=== PATIENT | female | born 1965 | race American Indian/Alaskan Native ===

== ENCOUNTER 2019-01-21 21:29 | Emergency (ER) | payer MEDICAID, OTHER ==
[2019-01-21 22:08] VITALS: BP 115/83
--- NOTE | 2019-01-21 23:37 | Emergency Department Report ---
ED Female HPI - General Chief complaint: Urogenital-Female Stated complaint: URINARY ISSUES Time Seen by Provider: 01/21/19 23:36 Source: patient Mode of arrival: Ambulatory Limitations: No Limitations - History of Present Illness Initial comments: 54-year-old -Citizen Of [place] female presents to the emergency room for urinary frequency 2 weeks. Patient denies any dysuria but does admit to urinary dribbling. Denies abdominal pain fever no nausea no vomiting. Onset/Timin -: week(s) Improves with: none Are you Now?: No - Related Data Previous Rx's Medication Instructions Recorded Last Taken Type Omeprazole 40 mg PO DAILY #30 capsule. 12/10/18 Unknown Rx Allergies Allergy/AdvReac Type Severity Reaction Status Date / Time No Known Allergies Allergy Unverified 12/10/18 10:51 ED Review of Systems ROS: Stated complaint: URINARY ISSUES Other details as noted in HPI Comment: All other systems reviewed and negative Genitourinary: frequency, other (urinary incontinence) ED Past Medical Hx - Past Medical History Previous Medical History?: No - Surgical History Past Surgical History?: Yes Additional Surgical History: TUBAL LIG - Social History Smoking Status: Never Smoker Substance Use Type: None - Medications Home Medications: Home Medications Medication Instructions Recorded Confirmed Last Taken Type Omeprazole 40 mg PO DAILY #30 capsule. 12/10/18 Unknown Rx ED Physical Exam - General Limitations: No Limitations General appearance: alert, in no apparent distress - Head Head exam: Present: atraumatic, normocephalic - Eye Eye exam: Present: normal appearance - Neurological Exam Neurological exam: Present: alert, oriented X3 - Psychiatric Psychiatric exam: Present: normal affect, normal mood - Skin Skin exam: Present: warm, dry, intact, normal color. Absent: rash ED Course Vital Signs 01/21/19 22:07 Temperature 97.7 F Pulse Rate 71 Respiratory 16 Rate Blood Pressure 115/83 [Right] O2 Sat by Pulse 100 Oximetry ED Medical Decision Making - Medical Decision Making Patient refused to sign paperwork and to be treated. Critical care attestation.: If time is entered above; I have spent that time in minutes in the direct care of this critically ill patient, excluding procedure time. ED Disposition Clinical Impression: Urinary frequency Disposition: ELOPED Is pt being admited?: No Does the pt Need Aspirin: No Condition: Undetermined [facility] [Primary Care Provider] - 3-5 Days
[2019-01-22 00:25] LABS: Bacteria,Urine 4+ /HPF (Negative); Bilirubin,Urine NEG (Negative); Blood,Urine NEG (Negative); Color,Urine Amber (Yellow); Mucus,Urine 3+ /HPF; Protein,Urine <15 mg/dL mg/dL (Negative)
== END 2019-01-21 23:40 | disposition left against medical advice (07) ==
LOC: ED 21:29
DX: R35.0 Frequency of micturition (principal); Z98.51 Tubal ligation status
CPT/HCPCS: 81001; 99283

== ENCOUNTER 2019-01-24 00:44 | Emergency (ER) | payer MEDICAID ==
--- NOTE | 2019-01-24 03:45 | Emergency Department Report ---
ED General Adult HPI - General Chief complaint: Urogenital-Female Stated complaint: FOOT/VAGINAL PAIN Time Seen by Provider: 01/24/19 03:33 Source: patient Mode of arrival: Ambulatory Limitations: No Limitations - History of Present Illness Initial comments: 54-year-old -[place] female presents to the emergency room for urinary frequency 2 weeks. Patient denies any dysuria but does admit to urinary dribbling. Denies abdominal pain fever no nausea no vomiting.Blister on plantar aspect toe. Onset/Timin -: week(s) Treatments Prior to Arrival: none - Related Data Previous Rx's Medication Instructions Recorded Last Taken Type Omeprazole 40 mg PO DAILY #30 capsule. 12/10/18 Unknown Rx cephALEXin [Keflex] 500 mg PO Q8HR #30 cap 01/24/19 Unknown Rx Allergies Allergy/AdvReac Type Severity Reaction Status Date / Time No Known Allergies Allergy Unverified 12/10/18 10:51 ED Review of Systems ROS: Stated complaint: FOOT/VAGINAL PAIN Other details as noted in HPI Comment: All other systems reviewed and negative Genitourinary: frequency Skin: lesions ED Past Medical Hx - Past Medical History Previous Medical History?: No - Surgical History Past Surgical History?: Yes Additional Surgical History: TUBAL LIG - Social History Smoking Status: Never Smoker Substance Use Type: None - Medications Home Medications: Home Medications Medication Instructions Recorded Confirmed Last Taken Type Omeprazole 40 mg PO DAILY #30 capsule. 12/10/18 Unknown Rx cephALEXin [Keflex] 500 mg PO Q8HR #30 cap 01/24/19 Unknown Rx ED Physical Exam - General Limitations: No Limitations General appearance: alert, in no apparent distress - Head Head exam: Present: atraumatic, normocephalic - Eye Eye exam: Present: normal appearance - ENT ENT exam: Present: mucous membranes moist - Neck Neck exam: Present: normal inspection - Respiratory Respiratory exam: Present: normal lung sounds bilaterally. Absent: respiratory distress - Cardiovascular Cardiovascular Exam: Present: regular rate, normal rhythm. Absent: systolic murmur, diastolic murmur, rubs, gallop - GI/Abdominal GI/Abdominal exam: Present: soft, normal bowel sounds - Back Exam Back exam: Present: normal inspection - Neurological Exam Neurological exam: Present: alert, oriented X3 - Psychiatric Psychiatric exam: Present: normal affect, normal mood - Expanded Skin Exam Expanded Type of lesion: Present: other (blister) Distribution of rash: LLE (4th toe) Description of rash: Present: blisters ED Course Vital Signs 01/24/19 00:51 Temperature 97.4 F L Pulse Rate 47 L Respiratory 18 Rate Blood Pressure 145/74 O2 Sat by Pulse 100 Oximetry ED Medical Decision Making - Medical Decision Making 54-year-old -[place] female comes in for urinary frequency and blister on her toe. Patient was attempted to be seen yesterday but refused to sign consent forms for me to treat. Urinalysis yesterday showed the patient had a urinary tract infection. Place patient on Keflex since she has no insurance or money. She will take 500 mg twice a day for the next 14 days. Patient is to follow-up with a primary care provider in the community. Critical care attestation.: If time is entered above; I have spent that time in minutes in the direct care of this critically ill patient, excluding procedure time. ED Disposition Clinical Impression: UTI (urinary tract infection), Blister of toe Disposition: TO HOME OR SELFCARE Is pt being admited?: No Does the pt Need Aspirin: No Condition: Stable Instructions: Urinary Tract Infection in Women (ED) Additional Instructions: Complete antibiotics as prescribed. Increase her water intake. Please refraim from walking too much. Get over the counter callus pads or mole skin. Follow up with a provider. Prescriptions: cephALEXin [Keflex] 500 mg PO Q8HR #30 cap Referrals: GHAZALA MONTES MD [Primary Care Provider] - 3-5 Days
[2019-01-24 04:50] VITALS: BP 140/38
== END 2019-01-24 04:49 | disposition home or self-care (01) ==
LOC: ED 00:44
DX: S90.425A Blister (nonthermal), left lesser toe(s), initial encounter (principal); N39.0 Urinary tract infection, site not specified; Z98.51 Tubal ligation status; X58.XXXA Exposure to other specified factors, initial encounter; Y93.89 Activity, other specified; Y92.89 Other specified places as the place of occurrence of the external cause; Y99.8 Other external cause status

== ENCOUNTER 2019-03-14 22:47 | Emergency (ER) | payer SELFPAY ==
[2019-03-15 04:09] LABS: Bacteria,Urine 3+ /HPF (Negative); Bilirubin,Urine NEG (Negative); Blood,Urine NEG (Negative); Color,Urine Yellow (Yellow); Mucus,Urine 3+ /HPF; Protein,Urine <15 mg/dL mg/dL (Negative)
[2019-03-15] MEDS ORDERED: LEVAQUIN PO ONE (04:28)
[2019-03-15] MEDS ORDERED: PYRIDIUM PO ONE (04:28)
--- NOTE | 2019-03-15 04:37 | Emergency Department Report ---
ED Female HPI - General Chief complaint: Urogenital-Male Stated complaint: ABD PAIN Time Seen by Provider: 03/15/19 01:00 Source: patient Mode of arrival: Ambulatory Limitations: No Limitations - History of Present Illness Initial comments: Patient is a 54-year-old, white female who presents to the ED with complaint of acute onset persistent dysuria, urinary frequency and urgency and intermittent urinary incontinence for the last 1 week, worse in the last 2 days. Patient denies fever, chills, nausea, vomiting, hematuria, vaginal bleeding, vaginal discharge, low back pain, abdominal pain, dizziness, chest pain, shortness of breath or diarrhea. MD Complaint: dysuria, other (urinary urgency nad frequency) -: Sudden, week(s) (1) Location: suprapubic Radiation: non-radiating Severity: severe Severity scale (0 -10): 6 Quality: dull (pressure) Consistency: intermittent Improves with: none Worsens with: urination Are you Now?: No Associated Symptoms: denies other symptoms, dysuria. denies: vaginal discharge, vaginal bleeding, abdominal pain, nausea/vomiting, fever/chills, headaches, loss of appetite, hematuria, rash, seizure, shortness of breath, syncope, weakness - Related Data Previous Rx's Medication Instructions Recorded Last Taken Type Omeprazole 40 mg PO DAILY #30 capsule.dr 12/10/18 Unknown Rx cephALEXin [Keflex] 500 mg PO Q8HR #30 cap 01/24/19 Unknown Rx Phenazopyridine [Pyridium] 200 mg PO Q8H #15 tab 03/15/19 Unknown Rx levoFLOXacin [Levaquin TAB] 500 mg PO QDAY #10 tablet 03/15/19 Unknown Rx Allergies Allergy/AdvReac Type Severity Reaction Status Date / Time No Known Allergies Allergy Unverified 12/10/18 10:51 ED Review of Systems ROS: Stated complaint: ABD PAIN Other details as noted in HPI Constitutional: denies: chills, fever Eyes: denies: eye pain, eye discharge, vision change ENT: denies: ear pain, throat pain Respiratory: denies: cough, shortness of breath, wheezing Cardiovascular: denies: chest pain, palpitations Endocrine: no symptoms reported Gastrointestinal: denies: abdominal pain, nausea, diarrhea Genitourinary: urgency, dysuria, frequency. denies: discharge Musculoskeletal: denies: back pain, joint swelling, arthralgia Skin: denies: rash, lesions Neurological: denies: headache, weakness, paresthesias Psychiatric: denies: anxiety, depression Hematological/Lymphatic: denies: easy bleeding, easy bruising ED Past Medical Hx - Past Medical History Previous Medical History?: Yes Hx Psychiatric Treatment: Yes (Bipolar) - Surgical History Past Surgical History?: Yes Additional Surgical History: TUBAL LIG - Social History Smoking Status: Never Smoker Substance Use Type: None - Medications Home Medications: Home Medications Medication Instructions Recorded Confirmed Last Taken Type Omeprazole 40 mg PO DAILY #30 capsule.dr 12/10/18 Unknown Rx cephALEXin [Keflex] 500 mg PO Q8HR #30 cap 01/24/19 Unknown Rx Phenazopyridine [Pyridium] 200 mg PO Q8H #15 tab 03/15/19 Unknown Rx levoFLOXacin [Levaquin TAB] 500 mg PO QDAY #10 tablet 03/15/19 Unknown Rx ED Physical Exam - General Limitations: No Limitations General appearance: alert, in no apparent distress - Head Head exam: Present: atraumatic, normocephalic, normal inspection - Eye Eye exam: Present: normal appearance, PERRL, EOMI Pupils: Present: normal accommodation - ENT ENT exam: Present: normal exam, normal orophraynx, mucous membranes moist, TM's normal bilaterally, normal external ear exam - Neck Neck exam: Present: normal inspection, full ROM - Respiratory Respiratory exam: Present: normal lung sounds bilaterally. Absent: respiratory distress, wheezes, rales, rhonchi, chest wall tenderness, decreased breath sounds, prolonged expiratory - Cardiovascular Cardiovascular Exam: Present: regular rate, normal rhythm, normal heart sounds. Absent: systolic murmur, diastolic murmur, rubs, gallop - GI/Abdominal GI/Abdominal exam: Present: soft, normal bowel sounds. Absent: distended, hyp eractive bowel sounds, hypoactive bowel sounds, organomegaly - Rectal Rectal exam: Present: deferred - Extremities Exam Extremities exam: Present: normal inspection, full ROM, normal capillary refill - Back Exam Back exam: Present: normal inspection, full ROM. Absent: tenderness, CVA tenderness (R), CVA tenderness (L), muscle spasm, paraspinal tenderness, vertebral tenderness - Neurological Exam Neurological exam: Present: alert, oriented X3, CN II-XII intact, normal gait, reflexes normal - Psychiatric Psychiatric exam: Present: normal affect, normal mood - Skin Skin exam: Present: warm, dry, intact, normal color. Absent: rash ED Course Vital Signs 03/14/19 23:04 Temperature 97.9 F Pulse Rate 70 Respiratory 18 Rate Blood Pressure 118/79 O2 Sat by Pulse 99 Oximetry - Reevaluation(s) Reevaluation #1: 03/15/19 04:36 This is a 54-year-old, female who presented to the ED with urinary urgency and frequency for the last 1 week. In the ED, patient is alert and oriented 3 and is not distressed. Urinalysis shows acute tract infection. Patient was treated initially in the ED with the Levaquin 500 mg by mouth 1 and discharged home on antibiotics. Patient is advised to follow-up with the [facility]OLOG[facility] physician on-call Dr. Do in 7-10 days for further evaluation. Patient was advised to return to the ED immediately if symptoms get worse. ED Medical Decision Making - Medical Decision Making This is a 54-year-old, female who presented to the ED with urinary urgency and frequency for the last 1 week. In the ED, patient is alert and oriented 3 and is not distressed. Urinalysis shows acute tract infection. Patient was treated initially in the ED with the Levaquin 500 mg by mouth 1 and discharged home on antibiotics. Patient is advised to follow-up with the GYNECOLOGY TEACHER physician on-call Dr. Do in 7-10 days for further evaluation. Patient was advised to return to the ED immediately if symptoms get worse. - Differential Diagnosis acute UTI; Urinary Incontinence Critical care attestation.: If time is entered above; I have spent that time in minutes in the direct care of this critically ill patient, excluding procedure time. ED Disposition Clinical Impression: Acute urinary tract infection Disposition: DC-01 TO HOME OR SELFCARE Is pt being admited?: No Does the pt Need Aspirin: No Condition: Stable Instructions: Urinary Tract Infection in Women (ED) Additional Instructions: Take medications with food, drink plenty of fluids and follow up with your primary care physician in 5-7 days for reevaluation. Return to the ED immediately if symptoms get worse. Consider following up with the GYNECOLOGY TEACHER physician Dr. Coello in 7-10 days. Prescriptions: levoFLOXacin [Levaquin TAB] 500 mg PO QDAY #10 tablet Phenazopyridine [Pyridium] 200 mg PO Q8H #15 tab Referrals: AXEL COELLO MD [Staff Physician] - 3-5 Days Time of Disposition: 04:39 Print Language: [place] CITIZEN
[2019-03-15 04:59] VITALS: BP 127/67
== END 2019-03-15 04:59 | disposition home or self-care (01) ==
LOC: ED 22:47
DX: N39.0 Urinary tract infection, site not specified (principal); F31.9 Bipolar disorder, unspecified; Z98.51 Tubal ligation status
CPT/HCPCS: 81001; 99283

== ENCOUNTER 2019-03-19 05:06 | Emergency (ER) | payer SELFPAY | END 2019-03-19 08:12 | disposition left against medical advice (07) | LOC: ED 05:06 | DX: N89.8 Other specified noninflammatory disorders of vagina (principal); Z53.21 Procedure and treatment not carried out due to patient leaving prior to being seen by health care provider ==

== ENCOUNTER 2019-04-04 03:04 | Emergency (ER) | payer SELFPAY ==
[2019-04-04 03:52] VITALS: BP 130/84
[2019-04-04 05:41] LABS: Bilirubin,Urine NEG (Negative); Blood,Urine NEG (Negative); Color,Urine Amber (Yellow); Mucus,Urine 3+ /HPF; Protein,Urine <15 mg/dL mg/dL (Negative)
--- NOTE | 2019-04-04 08:40 | Emergency Department Report ---
ED Psych HPI - General Chief Complaint: Urogenital-Female Stated Complaint: VAGINAL DISCHARGE Time Seen by Provider: 04/04/19 08:25 Source: patient Mode of arrival: Ambulatory - History of Present Illness Initial Comments: Patient is 54 years old female, unknown past medical history. Patient presented to the ER stating that she needed help for urinary incontinence that has been going on for more than 2 years. Patient stated that she came from [place] to [place] for a visit. Patient with obvious flights of ideas. Patient is disorganized and spacing in the room and talking to someone in the room ceiling. When asked about psychiatric history patient immediately turned a way and stopped talking. When asked about suicidal and homicidal ideation patient also refused to answer questions. MD Complaint: altered mental status - Related Data Previous Rx's Medication Instructions Recorded Last Taken Type Omeprazole 40 mg PO DAILY #30 capsule. 12/10/18 Unknown Rx cephALEXin [Keflex] 500 mg PO Q8HR #30 cap 01/24/19 Unknown Rx Phenazopyridine [Pyridium] 200 mg PO Q8H #15 tab 03/15/19 Unknown Rx levoFLOXacin [Levaquin TAB] 500 mg PO QDAY #10 tablet 03/15/19 Unknown Rx Allergies Allergy/AdvReac Type Severity Reaction Status Date / Time No Known Allergies Allergy Unverified 12/10/18 10:51 ED Review of Systems ROS: Stated complaint: VAGINAL DISCHARGE Other details as noted in HPI Comment: All other systems reviewed and negative Constitutional: denies: chills, fever Respiratory: denies: cough, shortness of breath, SOB with exertion, SOB at rest, wheezing Cardiovascular: denies: chest pain, palpitations Gastrointestinal: denies: abdominal pain, nausea Genitourinary: other (incontinence) ED Past Medical Hx - Past Medical History Previous Medical History?: Yes Hx Psychiatric Treatment: Yes (Bipolar) - Surgical History Past Surgical History?: Yes Additional Surgical History: TUBAL LIG - Social History Smoking Status: Never Smoker Substance Use Type: None - Medications Home Medications: Home Medications Medication Instructions Recorded Confirmed Last Taken Type Omeprazole 40 mg PO DAILY #30 capsule. 12/10/18 Unknown Rx cephALEXin [Keflex] 500 mg PO Q8HR #30 cap 01/24/19 Unknown Rx Phenazopyridine [Pyridium] 200 mg PO Q8H #15 tab 03/15/19 Unknown Rx levoFLOXacin [Levaquin TAB] 500 mg PO QDAY #10 tablet 03/15/19 Unknown Rx ED Physical Exam - General Limitations: No Limitations General appearance: alert, in no apparent distress, anxious - Head Head exam: Present: atraumatic, normocephalic, normal inspection - Eye Eye exam: Present: normal appearance, PERRL - ENT ENT exam: Present: normal exam, normal orophraynx, mucous membranes moist - Neck Neck exam: Present: normal inspection, full ROM. Absent: tenderness, meningismus, lymphadenopathy, thyromegaly - Respiratory Respiratory exam: Present: normal lung sounds bilaterally - Cardiovascular Cardiovascular Exam: Present: regular rate, normal rhythm, normal heart sounds - GI/Abdominal GI/Abdominal exam: Present: soft, normal bowel sounds. Absent: distended, tenderness, guarding, rebound, rigid, organomegaly, mass, bruit, pulsatile mass, hernia - Extremities Exam Extremities exam: Present: normal inspection, full ROM, normal capillary refill. Absent: pedal edema, calf tenderness - Back Exam Back exam: Present: normal inspection, full ROM. Absent: CVA tenderness (R), CVA tenderness (L), muscle spasm, paraspinal tenderness, vertebral tenderness - Neurological Exam Neurological exam: Present: alert, oriented X3, CN II-XII intact, normal gait, reflexes normal - Psychiatric Psychiatric exam: Present: anxious ED Course Vital Signs 04/04/19 03:47 Temperature 98.6 F Pulse Rate 58 L Respiratory 16 Rate Blood Pressure 130/84 O2 Sat by Pulse 100 Oximetry ED Medical Decision Making - Medical Decision Making Patient is 54 years old female, unknown past medical history. Patient presented to the ER stating that she needed help for urinary incontinence that has been going on for more than 2 years. Patient stated that she came from [place] to [place] for a visit. Patient with obvious flights of ideas. Patient is disorganized and spacing in the room and talking to someone in the room ceiling. When asked about psychiatric history patient immediately turned a way and stopped talking. When asked about suicidal and homicidal ideation patient denied. Unsure if this is the patient baseline psychiatric symptoms. Mental health evaluation requested. At this point patient does not require involuntary evaluation. Critical care attestation.: If time is entered above; I have spent that time in minutes in the direct care of this critically ill patient, excluding procedure time. ED Disposition Clinical Impression: Urinary incontinence, Psychosis Disposition: ELOPED Is pt being admited?: No Condition: Stable Referrals: [facility], [Primary Care Provider] - 3-5 Days
== END 2019-04-04 09:30 | disposition left against medical advice (07) ==
LOC: ED 03:04
DX: F23 Brief psychotic disorder (principal); R32 Unspecified urinary incontinence; F31.9 Bipolar disorder, unspecified; Z98.51 Tubal ligation status; Z79.899 Other long term (current) drug therapy
CPT/HCPCS: 81001

== ENCOUNTER 2019-04-15 22:13 | Emergency (ER) | payer OTHER ==
[2019-04-15 22:56] VITALS: BP 135/74
--- NOTE | 2019-04-16 02:51 | Emergency Department Report ---
Chief Complaint: Urogenital-Female Stated Complaint: VAGINAL IRRITATION/INSECT BITE Time Seen by Provider: 04/16/19 02:45 - HPI History of Present Illness: 54-year-old -[place] female with a known history of psychosis comes in today for vaginal irritation and insect bite to the left pinky for 2 weeks. Patient denies any fever chills or nausea no vomiting no fevers. Patient is hearing voices and talking to pressures are not in the room. - Exam Vital Signs: Vital Signs 04/15/19 22:53 Temperature 97.9 F Pulse Rate 60 Respiratory 16 Rate Blood Pressure 135/74 O2 Sat by Pulse 100 Oximetry Physical Exam: Left pinky no swelling no redness or irritation. Genitourinary examination: External no redness does swelling no lesions no discharge Patient refused to do it internal vaginal exam. MSE screening note: Focused history and physical exam performed. Due to findings the following was ordered: Patient refused exam. Patient to follow-up with the primary care provider or [facility] provider. Vital signs are stable. ED Disposition for MSE Clinical Impression: Vaginal irritation Disposition: DC- TO HOME OR SELFCARE Is pt being admited?: No Does the pt Need Aspirin: No Condition: Stable Additional Instructions: Follow-up with the [facility] provider Referrals: [facility]ARE [Primary Care Provider] - 3-5 Days [facility] [Provider Group] - 3-5 Days
== END 2019-04-16 03:07 | disposition home or self-care (01) ==
LOC: ED 22:13
DX: N89.8 Other specified noninflammatory disorders of vagina (principal)

== ENCOUNTER 2020-04-07 22:07 | Emergency (ER) | payer SELFPAY ==
[2020-04-07 22:19] VITALS: BP 103/55
[2020-04-08 03:57] LABS: Hematocrit 38.1 % (30.3-42.9); Hemoglobin 13.5 gm/dl (10.1-14.3); Mean Corpuscular HGB Conc 35 % (30-34); Mean Corpuscular Volume 86 fl (79-97); Platelet Count 204 K/mm3 (140-440); Red Blood Count 4.45 M/mm3 (3.65-5.03); Red Cell Distribution Width 13.9 % (13.2-15.2)
[2020-04-08 04:18] LABS: Alanine Aminotransferase 19 units/L (7-56); Albumin 4.3 g/dL (3.9-5); Blood Urea Nitrogen 15 mg/dL (7-17); Calcium 9.1 mg/dL (8.4-10.2); Hemolysis Index 34
[2020-04-08 04:21] LABS: BUN/Creatinine Ratio 21
--- NOTE | 2020-04-08 04:38 | Emergency Department Report ---
ED General Adult HPI - General Chief complaint: Skin Rash Stated complaint: ALLERGIC REACTION Source: patient Mode of arrival: Ambulatory Limitations: No Limitations - History of Present Illness Initial comments: Patient is a 55-year-old -[place] female with a history of bipolar disorder who presents to the ED with acute exacerbation of her chronic diffuse itchy skin for the last 1 month. Patient states that she has had itching of skin with no known cause for over 1 year and that the itching resolves when she takes Benadryl. Patient states that she has not taken Benadryl in about 1 month and that in the last 2 days the itching got worse. Patient denies eating any new foods, any new lotions or shortness of breath, swollen lips or tongue, dysphagia, dysphonia, fever, chills, cough, nausea and vomiting or diarrhea or abdominal pain. MD Complaint: Itching -: Gradual, month(s) (12) Location: chest, back, abdomen Radiation: non-radiation Severity scale (0 -10): 3 Quality: burning, aching Consistency: constant Improves with: medication (benadryl) Worsens with: none Associated Symptoms: denies other symptoms. denies: confusion, chest pain, cough, diaphoresis, fever/chills, headaches, loss of appetite, malaise, nausea/vomiting, rash, seizure, shortness of breath, syncope, weakness Treatments Prior to Arrival: none - Related Data Previous Rx's Medication Instructions Recorded Last Taken Type Omeprazole 40 mg PO DAILY #30 capsule. 12/10/18 Unknown Rx cephALEXin [Keflex] 500 mg PO Q8HR #30 cap 01/24/19 Unknown Rx Phenazopyridine [Pyridium] 200 mg PO Q8H #15 tab 03/15/19 Unknown Rx levoFLOXacin [Levaquin TAB] 500 mg PO QDAY #10 tablet 03/15/19 Unknown Rx Hydrocortisone 0.5% (Nf) 1 applicatio TP TID #1 tube 04/08/20 Unknown Rx [Hydrocortisone 0.5% OINT] hydrOXYzine PAMOATE [Vistaril] 25 mg PO Q6HR PRN #60 capsule 04/08/20 Unknown Rx methylPREDNISolone [Medrol 4MG 4 mg PO DAILY #21 tab.ds.pk 04/08/20 Unknown Rx DOSEPAK (21 tabs)] Allergies Allergy/AdvReac Type Severity Reaction Status Date / Time No Known Allergies Allergy Unverified 12/10/18 10:51 ED Review of Systems ROS: Stated complaint: ALLERGIC REACTION Other details as noted in HPI Constitutional: denies: chills, fever Eyes: denies: eye pain, eye discharge, vision change ENT: denies: ear pain, throat pain Respiratory: denies: cough, shortness of breath, wheezing Cardiovascular: denies: chest pain, palpitations Endocrine: no symptoms reported Gastrointestinal: denies: abdominal pain, nausea, diarrhea Genitourinary: denies: urgency, dysuria, discharge Musculoskeletal: denies: back pain, joint swelling, arthralgia Skin: pruritus (Diffuse itchy skin). denies: rash, lesions Neurological: denies: headache, weakness, paresthesias Psychiatric: anxiety. denies: depression Hematological/Lymphatic: denies: easy bleeding, easy bruising ED Past Medical Hx - Past Medical History Previous Medical History?: Yes Hx Psychiatric Treatment: Yes (Bipolar) - Surgical History Past Surgical History?: Yes Additional Surgical History: TUBAL LIG - Social History Smoking Status: Never Smoker Substance Use Type: None - Medications Home Medications: Home Medications Medication Instructions Recorded Confirmed Last Taken Type Omeprazole 40 mg PO DAILY #30 capsule.dr 12/10/18 Unknown Rx cephALEXin [Keflex] 500 mg PO Q8HR #30 cap 01/24/19 Unknown Rx Phenazopyridine [Pyridium] 200 mg PO Q8H #15 tab 03/15/19 Unknown Rx levoFLOXacin [Levaquin TAB] 500 mg PO QDAY #10 tablet 03/15/19 Unknown Rx Hydrocortisone 0.5% (Nf) 1 applicatio TP TID #1 tube 04/08/20 Unknown Rx [Hydrocortisone 0.5% OINT] hydrOXYzine PAMOATE [Vistaril] 25 mg PO Q6HR PRN #60 capsule 04/08/20 Unknown Rx methylPREDNISolone [Medrol 4MG 4 mg PO DAILY #21 tab.ds.pk 04/08/20 Unknown Rx DOSEPAK (21 tabs)] ED Physical Exam - General Limitations: No Limitations General appearance: alert, in no apparent distress - Head Head exam: Present: atraumatic, normocephalic, normal inspection - Eye Eye exam: Present: normal appearance, PERRL, EOMI Pupils: Present: normal accommodation - ENT ENT exam: Present: normal exam, normal orophraynx, mucous membranes moist, TM's normal bilaterally, normal external ear exam - Neck Neck exam: Present: normal inspection, full ROM - Respiratory Respiratory exam: Present: normal lung sounds bilaterally. Absent: respiratory distress, wheezes, rales, stridor, chest wall tenderness, decreased breath sounds, prolonged expiratory - Cardiovascular Cardiovascular Exam: Present: regular rate, normal rhythm, normal heart sounds. Absent: systolic murmur, diastolic murmur, rubs, gallop - GI/Abdominal GI/Abdominal exam: Present: soft, normal bowel sounds. Absent: tenderness, guarding, rebound, hyperactive bowel sounds, hypoactive bowel sounds - Extremities Exam Extremities exam: Present: normal inspection, full ROM, normal capillary refill - Back Exam Back exam: Present: normal inspection, full ROM. Absent: tenderness, CVA tenderness (R), CVA tenderness (L), muscle spasm, paraspinal tenderness - Neurological Exam Neurological exam: Present: alert, oriented X3, CN II-XII intact, normal gait, reflexes normal - Psychiatric Psychiatric exam: Present: normal affect, normal mood, anxious - Skin Skin exam: Present: warm, dry, intact, normal color. Absent: rash ED Course Vital Signs 04/07/20 22:18 Temperature 98.3 F Pulse Rate 78 Respiratory 18 Rate Blood Pressure 103/55 O2 Sat by Pulse 99 Oximetry ED Medical Decision Making - Lab Data Result diagrams: 04/08/20 03:34 04/08/20 03:34 - Medical Decision Making This is a 55-year-old -[place] female with a history of bipolar disorder who presents to the ED with acute exacerbation of her chronic diffuse itchy skin for the last 1 month. Patient states that she has had itching of skin with no known cause for over 1 year and that the itching resolves when she takes Benadryl. Patient states that she has not taken Benadryl in about 1 month and that in the last 2 days the itching got worse. In the ED, patient is alert and oriented x3 and is not in distress, anxious and is hemodynamically stable. Lab test results were reviewed and are all nonactionable. Patient was treated for itching and discharged home on medications. Patient was advised to return to the ED immediately if symptoms get worse. Otherwise patient was advised to follow-up with her primary care physician in 7 to 10 days for reevaluation. - Differential Diagnosis Irritant dermatitis; Itching with irritation; allergic reaction Critical care attestation.: If time is entered above; I have spent that time in minutes in the direct care of this critically ill patient, excluding procedure time. ED Disposition Clinical Impression: Itching with irritation, Irritant dermatitis Disposition: TO HOME OR SELFCARE Is pt being admited?: No Does the pt Need Aspirin: No Condition: Stable Instructions: Itchy Skin (ED) Additional Instructions: Take medication with food, drink plenty of fluids and follow-up with your primary care physician in 5 to 7 days for reevaluation. Return to the ED imme diately if symptoms get worse. Prescriptions: Hydrocortisone 0.5% (Nf) [Hydrocortisone 0.5% OINT] 1 applicatio TP TID #1 tube methylPREDNISolone [Medrol 4MG DOSEPAK (21 tabs)] 4 mg PO DAILY #21 tab.ds.pk hydrOXYzine PAMOATE [Vistaril] 25 mg PO Q6HR PRN #60 capsule PRN Reason: Itching Referrals: [facility] [Provider Group] - 3-5 Days Time of Disposition: 04:35 Print Language: KOREAN
[2020-04-08 04:54] LABS: Total Cells Counted 100
[2020-04-08 04:55] LABS: Ovalocytes Few; Platelet Estimate Consistent w Auto; Schistocytes Few
== END 2020-04-08 05:50 | disposition home or self-care (01) ==
LOC: ED 22:07
DX: L30.8 Other specified dermatitis (principal); L29.9 Pruritus, unspecified; F31.9 Bipolar disorder, unspecified; Z98.51 Tubal ligation status; Z79.899 Other long term (current) drug therapy; Z79.2 Long term (current) use of antibiotics
CPT/HCPCS: 36415; 80053; 85007; 85025

== ENCOUNTER 2020-04-12 02:00 | Emergency (ER) | payer SELFPAY ==
[2020-04-12 02:43] VITALS: BP 130/79
--- NOTE | 2020-04-12 05:03 | Emergency Department Report ---
ED General Adult HPI - General Chief complaint: Skin Rash Stated complaint: ITCHY/INSECT BITE Source: patient Mode of arrival: Ambulatory Limitations: No Limitations - History of Present Illness Initial comments: Patient is a 55-year-old -Iranian female with a history of schizophrenia, bipolar disorder and anxiety who presents to the ED with complaint of acute onset persistent bilateral lower extremity itching with rashes after [place]. Patient also states that the symptoms have been persistent alonso ecially in the last 2 days. Patient states that she has not taken any antihistamines or any other medications for itching. Patient denies fever, chills, nausea, vomiting, diarrhea, dysuria, urinary frequency and urgency, traumatic injury, chest pain and shortness of breath, hallucination or suicidal and homicidal ideation. MD Complaint: Lower legs itching after insect bite -: week(s) (2 weeks) Location: lower extremity (Bilaterally) Radiation: non-radiation Severity scale (0 -10): 2 Quality: burning, constant, other (Itching) Consistency: constant Improves with: none Worsens with: none Associated Symptoms: denies other symptoms, rash (Mildly erythematous maculopapular rashes on the lower extremities bilaterally). denies: confusion, chest pain, cough, diaphoresis, fever/chills, headaches, loss of appetite, malaise, seizure, shortness of breath, syncope, weakness Treatments Prior to Arrival: none - Related Data Previous Rx's Medication Instructions Recorded Last Taken Type Omeprazole 40 mg PO DAILY #30 capsule. 12/10/18 Unknown Rx cephALEXin [Keflex] 500 mg PO Q8HR #30 cap 01/24/19 Unknown Rx Phenazopyridine [Pyridium] 200 mg PO Q8H #15 tab 03/15/19 Unknown Rx levoFLOXacin [Levaquin TAB] 500 mg PO QDAY #10 tablet 03/15/19 Unknown Rx Hydrocortisone 0.5% (Nf) 1 applicatio TP TID #1 tube 04/08/20 Unknown Rx [Hydrocortisone 0.5% OINT] hydrOXYzine PAMOATE [Vistaril] 25 mg PO Q6HR PRN #60 capsule 04/08/20 Unknown Rx methylPREDNISolone [Medrol 4MG 4 mg PO DAILY #21 tab.ds.pk 04/08/20 Unknown Rx DOSEPAK (21 tabs)] Allergies Allergy/AdvReac Type Severity Reaction Status Date / Time No Known Allergies Allergy Unverified 04/12/20 02:15 ED Review of Systems ROS: Stated complaint: ITCHY/INSECT BITE Other details as noted in HPI Constitutional: denies: chills, fever Eyes: denies: eye pain, eye discharge, vision change ENT: denies: ear pain, throat pain Respiratory: denies: cough, shortness of breath, wheezing Cardiovascular: denies: chest pain, palpitations Endocrine: no symptoms reported Gastrointestinal: denies: abdominal pain, nausea, diarrhea Genitourinary: denies: urgency, dysuria, discharge Musculoskeletal: denies: back pain, joint swelling, arthralgia Skin: rash (Diffuse itchy bilateral lower extremity maculopapular rashes with mild redness), change in color, pruritus. denies: lesions Neurological: denies: headache, weakness, paresthesias Psychiatric: anxiety. denies: depression Hematological/Lymphatic: denies: easy bleeding, easy bruising ED Past Medical Hx - Past Medical History Hx Psychiatric Treatment: Yes (Bipolar; schizophrenia; anxiety) - Surgical History Additional Surgical History: TUBAL LIG - Social History Smoking Status: Never Smoker Substance Use Type: None - Medications Home Medications: Home Medications Medication Instructions Recorded Confirmed Last Taken Type Omeprazole 40 mg PO DAILY #30 capsule.dr 12/10/18 Unknown Rx cephALEXin [Keflex] 500 mg PO Q8HR #30 cap 01/24/19 Unknown Rx Phenazopyridine [Pyridium] 200 mg PO Q8H #15 tab 03/15/19 Unknown Rx levoFLOXacin [Levaquin TAB] 500 mg PO QDAY #10 tablet 03/15/19 Unknown Rx Hydrocortisone 0.5% (Nf) 1 applicatio TP TID #1 tube 04/08/20 Unknown Rx [Hydrocortisone 0.5% OINT] hydrOXYzine PAMOATE [Vistaril] 25 mg PO Q6HR PRN #60 capsule 04/08/20 Unknown Rx methylPREDNISolone [Medrol 4MG 4 mg PO DAILY #21 tab.ds.pk 04/08/20 Unknown Rx DOSEPAK (21 tabs)] ED Physical Exam - General Limitations: No Limitations General appearance: alert, in no apparent distress - Head Head exam: Present: atraumatic, normocephalic, normal inspection - Eye Eye exam: Present: normal appearance, PERRL, EOMI Pupils: Present: normal accommodation - ENT ENT exam: Present: normal exam, normal orophraynx, mucous membranes moist, TM's normal bilaterally, normal external ear exam - Neck Neck exam: Present: normal inspection, full ROM - Respiratory Respiratory exam: Present: normal lung sounds bilaterally. Absent: respiratory distress, wheezes, rales, stridor, chest wall tenderness, accessory muscle use, decreased breath sounds, prolonged expiratory - Cardiovascular Cardiovascular Exam: Present: regular rate, normal rhythm, normal heart sounds. Absent: systolic murmur, diastolic murmur, rubs, gallop - GI/Abdominal GI/Abdominal exam: Present: soft, normal bowel sounds. Absent: tenderness, guarding, rebound, hyperactive bowel sounds, hypoactive bowel sounds, organomegaly - Extremities Exam Extremities exam: Present: normal inspection, full ROM, normal capillary refill - Back Exam Back exam: Present: normal inspection, full ROM. Absent: tenderness, CVA tenderness (R), muscle spasm, paraspinal tenderness, vertebral tenderness - Neurological Exam Neurological exam: Present: alert, oriented X3, CN II-XII intact, normal gait, reflexes normal - Psychiatric Psychiatric exam: Present: depressed, anxious, flat affect. Absent: manic, homicidal ideation, suicidal ideation - Skin Skin exam: Present: warm, dry, intact, normal color, rash (Diffuse mildly erythematous maculopapular rashes on the lower extremities bilaterally), erythema ED Course Vital Signs 04/12/20 02:13 Temperature 98.5 F Pulse Rate 81 Respiratory 18 Rate Blood Pressure 130/79 O2 Sat by Pulse 96 Oximetry ED Medical Decision Making - Medical Decision Making This is a 55-year-old -Iranian female with a history of schizophrenia, bipolar disorder and anxiety who presents to the ED with complaint of acute onset persistent bilateral lower extremity itching with rashes after [place]. Patient also states that the symptoms have been persistent especially in the last 2 days. Patient states that she has not taken any antihistamines or any other medications for itching. In the ED, patient is alert and oriented x3 and is not in distress, patient talking to herself while writing on various pieces of paper and has her belongings in a suitcase by her. Patient was treated for the same about 4 days ago and was given a prescription but never filled the medication. Patient was treated with antihistamines in the ED and was discharged home and advised to fill the prescription that was previously written for her, Vistaril and to follow-up with her primary care physician in 5 to 7 days for reevaluation. Patient was advised to return to the ED immediately if symptoms get worse. - Differential Diagnosis Insect bite; urticaria; allergic reaction; itching Critical care attestation.: If time is entered above; I have spent that time in minutes in the direct care of this critically ill patient, excluding procedure time. ED Disposition Clinical Impression: Itching with irritation, Allergy to insect bites and stings Disposition: DC- TO HOME OR SELFCARE Is pt being admited?: No Does the pt Need Aspirin: No Condition: Stable Instructions: Itchy Skin (ED), Insect Bite or Sting (ED) Additional Instructions: Take the previously prescribed anti-itch medication, follow-up with your primary care physician in 5 to 7 days for reevaluation. Return to the ED immediately if symptoms get worse. Referrals: [facility] [Outside] - 3-5 Days Time of Disposition: 05:04 Print Language: NORTHER[place] IRISH
[2020-04-12] MEDS ORDERED: FAMOTIDINE 20 MG TAB PO ONE (05:06)
[2020-04-12] MEDS ORDERED: diphenhydrAMINE 25 MG CAP PO ONE (05:06)
== END 2020-04-12 05:20 | disposition home or self-care (01) ==
LOC: ED 02:00
DX: T63.441A Toxic effect of venom of bees, accidental (unintentional), initial encounter (principal); Y92.89 Other specified places as the place of occurrence of the external cause; F20.9 Schizophrenia, unspecified; F31.9 Bipolar disorder, unspecified; F41.9 Anxiety disorder, unspecified; Z79.899 Other long term (current) drug therapy
CPT/HCPCS: 99282

== ENCOUNTER 2020-09-19 19:40 | Emergency (ER) | payer MEDICAID ==
[2020-09-19 20:42] VITALS: BP 115/71
--- NOTE | 2020-09-19 20:49 | Emergency Department Report ---
Chief Complaint: Abdominal Pain Stated Complaint: LACERATION TO LEFT TOE/ABDOMINAL PAIN Time Seen by Provider: 09/19/20 20:40 - HPI History of Present Illness: Patient is a 55-year-old female who presents emergency room with complaints of a cut to the bottom of her right toes that has been intermittent for 6 months. She denies any fall or injury. She denies being cut by anything. She states that her skin just cracks and opens. She denies any drainage, fever, leg swelling, pain. No past medical history. No allergies to medications. Initial vitals with mild tachycardia, otherwise normal On repeat heart rate is 60 bpm and oxygen saturation is 100% on room air On exam: There are small calluses present to the plantar surface of each of the toes, the fifth toe dorsal surface has a very superficial small opening only a couple millimeters in size, no significant opening, no surrounding erythema, no drainage, no increased warmth, neurovascularly intact Patient is presenting for calluses and breaks in the skin secondary to dry skin No signs of ulceration, no infection, she is neurovascularly intact Advised patient to use Neosporin on the small opening and to use lotion on her dry skin Advised to follow-up with a primary care doctor Discussed return precautions Medical screening examination performed and there is at that level at this time - Exam Vital Signs: Vital Signs 09/19/20 19:55 Temperature 97.6 F Pulse Rate 103 H Respiratory 18 Rate Blood Pressure 115/71 O2 Sat by Pulse 98 Oximetry MSE screening note: Focused history and physical exam performed. Due to findings the following was ordered: ED Disposition for MSE Clinical Impression: Callus, Cracked skin on feet Disposition: Z-07 MED SCREENING EXAM-LEFT Is pt being admited?: No Does the pt Need Aspirin: No Condition: Stable Instructions: Abdominal Pain (ED), Corns and Calluses Additional Instructions: Please use Neosporin to the small openings. Please use lotion on the feet to help with dry skin. Follow-up with your primary care doctor. Return to emergency room for new or worsening symptoms. Referrals: LIZA HOLLAND MD [Staff Physician] - 3-5 Days [facility] [Provider Group] - 3-5 Days [facility], [LAB/CONTRACT] - 3-5 Days [facility] [Outside] - 3-5 Days Time of Disposition: 20:51 Print Language: TURKISH
== END 2020-09-19 21:01 | disposition left against medical advice (07) ==
LOC: ED 19:40
DX: L84 Corns and callosities (principal); L98.8 Other specified disorders of the skin and subcutaneous tissue; Z53.21 Procedure and treatment not carried out due to patient leaving prior to being seen by health care provider

== ENCOUNTER 2020-09-20 17:30 | Emergency (ER) | payer SELFPAY ==
[2020-09-20 17:51] VITALS: BP 101/64
--- NOTE | 2020-09-20 19:26 | Emergency Department Report ---
ED General Adult HPI - General Chief complaint: Abdominal Pain Stated complaint: VAGINAL DISCOMFORT Time Seen by Provider: 09/20/20 18:09 Source: patient Mode of arrival: Ambulatory Limitations: No Limitations - History of Present Illness Initial comments: Patient is a 55-year-old female presents emergency room with complaints of umbilical and suprapubic abdominal discomfort for 8 months. She states that she has associated urinary frequency, dark urine, odor to the urine. She denies any dysuria, vaginal discharge, fever, nausea, vomiting, diarrhea, hematochezia, melena, hematemesis. She is able to tolerate p.o. intake. No allergies to medications. Past surgical history of tubal ligation. - Related Data Previous Rx's Medication Instructions Recorded Last Taken Type Omeprazole 40 mg PO DAILY #30 capsule. 12/10/18 Unknown Rx cephALEXin [Keflex] 500 mg PO Q8HR #30 cap 01/24/19 Unknown Rx Phenazopyridine [Pyridium] 200 mg PO Q8H #15 tab 03/15/19 Unknown Rx levoFLOXacin [Levaquin TAB] 500 mg PO QDAY #10 tablet 03/15/19 Unknown Rx Hydrocortisone 0.5% (Nf) 1 applicatio TP TID #1 tube 04/08/20 Unknown Rx [Hydrocortisone 0.5% OINT] hydrOXYzine PAMOATE [Vistaril] 25 mg PO Q6HR PRN #60 capsule 04/08/20 Unknown Rx methylPREDNISolone [Medrol 4MG 4 mg PO DAILY #21 tab.ds.pk 04/08/20 Unknown Rx DOSEPAK (21 tabs)] Naproxen [EC-Naprosyn] 500 mg PO BID PRN #14 tablet. 09/20/20 Unknown Rx Phenazopyridine [Pyridium] 100 mg PO TID #9 tab 09/20/20 Unknown Rx Allergies Allergy/AdvReac Type Severity Reaction Status Date / Time No Known Allergies Allergy Verified 09/19/20 20:00 ED Review of Systems ROS: Stated complaint: VAGINAL DISCOMFORT Other details as noted in HPI Comment: All other systems reviewed and negative ED Past Medical Hx - Past Medical History Previous Medical History?: Yes Hx Psychiatric Treatment: Yes (Bipolar; schizophrenia; anxiety) - Surgical History Past Surgical History?: Yes Additional Surgical History: TUBAL LIG - Social History Smoking Status: Never Smoker - Medications Home Medications: Home Medications Medication Instructions Recorded Confirmed Last Taken Type Omeprazole 40 mg PO DAILY #30 capsule. 12/10/18 Unknown Rx cephALEXin [Keflex] 500 mg PO Q8HR #30 cap 01/24/19 Unknown Rx Phenazopyridine [Pyridium] 200 mg PO Q8H #15 tab 03/15/19 Unknown Rx levoFLOXacin [Levaquin TAB] 500 mg PO QDAY #10 tablet 03/15/19 Unknown Rx Hydrocortisone 0.5% (Nf) 1 applicatio TP TID #1 tube 04/08/20 Unknown Rx [Hydrocortisone 0.5% OINT] hydrOXYzine PAMOATE [Vistaril] 25 mg PO Q6HR PRN #60 capsule 04/08/20 Unknown Rx methylPREDNISolone [Medrol 4MG 4 mg PO DAILY #21 tab.ds.pk 04/08/20 Unknown Rx DOSEPAK (21 tabs)] Naproxen [EC-Naprosyn] 500 mg PO BID PRN #14 tablet. 09/20/20 Unknown Rx Phenazopyridine [Pyridium] 100 mg PO TID #9 tab 09/20/20 Unknown Rx ED Physical Exam - General Limitations: No Limitations General appearance: alert, in no apparent distress - Head Head exam: Present: atraumatic, normocephalic - Eye Eye exam: Present: normal appearance - ENT ENT exam: Present: mucous membranes moist - Respiratory Respiratory exam: Present: normal lung sounds bilaterally. Absent: respiratory distress, wheezes, rales, rhonchi, stridor, chest wall tenderness, accessory muscle use, decreased breath sounds, prolonged expiratory - Cardiovascular Cardiovascular Exam: Present: regular rate, normal rhythm, normal heart sounds. Absent: systolic murmur, diastolic murmur, rubs, gallop - GI/Abdominal GI/Abdominal exam: Present: soft, normal bowel sounds, hernia (very small easily reducible umbilical hernia). Absent: distended, tenderness, guarding, rigid - Neurological Exam Neurological exam: Present: alert, oriented X3 - Psychiatric Psychiatric exam: Present: normal affect, normal mood - Skin Skin exam: Present: warm, dry, intact ED Course Vital Signs 09/20/20 17:47 Temperature 98.4 F Pulse Rate 98 H Respiratory 18 Rate Blood Pressure 101/64 O2 Sat by Pulse 98 Oximetry ED Medical Decision Making - Lab Data Lab Results 02/17/21 Range/Units 18:27 Urine Color Denice (Yellow) Urine Turbidity Slightly-cloudy (Clear) Urine pH 5.0 (5.0-7.0) Ur Specific [place] 1.028 (1.003-1.030) Urine Protein 30 mg/dl (Negative) mg/dL Urine Glucose (UA) Neg (Negative) mg/dL Urine Ketones Tr (Negative) mg/dL Urine Blood Neg (Negative) Urine Nitrite Neg (Negative) Urine Bilirubin Neg (Negative) Urine Urobilinogen 4.0 (<2.0) mg/dL Ur Leukocyte Esterase Tr (Negative) Urine WBC (Auto) 4.0 (0.0-6.0) /HPF Urine RBC (Auto) 2.0 (0.0-6.0) /HPF U Epithel Cells (Auto) 3.0 (0-13.0) /HPF Urine Mucus 3+ /HPF - Medical Decision Making Patient is a 55-year-old female presents emergency room with complaints of umbilical and suprapubic abdominal discomfort for 8 months. She states that she has associated urinary frequency, dark urine, odor to the urine. She denies any dysuria, vaginal discharge, fever, nausea, vomiting, diarrhea, hematochezia, melena, hematemesis. She is able to tolerate p.o. intake. No allergies to medications. Past surgical history of tubal ligation. vitals are normal. on exam: No abdominal tenderness on exam, no distention, normal bowel sounds, abdomen is soft, nontender, no guarding, no rebound, no rigidity, normal bowel sounds, no peritoneal signs, very small easily reducible umbilical hernia. UA is within normal limits. Patient has no obstructive symptoms, she is tolerating p.o. intake, no vomiting. UA shows no evidence of UTI. Do not suspect acute emergent intra-abdominal pathology at this time assessment ongoing for 8 months, discussed the importance of follow-up and reexamination. patient be referred to primary care doctor and general surgeon. Discussed return precautions with patient. Patient given prescription for naproxen and prednisone. Advised patient Please take medication as prescribed. Increase your water intake. Medication may turn your urine orange, this is normal. Follow-up with primary care doctor. Return to emergency room for new or worsening symptoms. Critical care attestation.: If time is entered above; I have spent that time in minutes in the direct care of this critically ill patient, excluding procedure time. ED Disposition Clinical Impression: Umbilical hernia Qualifiers: Obstruction and gangrene presence: without obstruction or gangrene Qualified Code(s): K42.9 - Umbilical hernia without obstruction or gangrene Disposition: TO HOME OR SELFCARE Is pt being admited?: No Does the pt Need Aspirin: No Condition: Stable Instructions: Umbilical Hernia, Adult, Abdominal Pain (ED) Additional Instructions: Please take medication as prescribed. Increase your water intake. Medication may turn your urine orange, this is normal. Follow-up with primary care doctor. Return to emergency room for new or worsening symptoms. Prescriptions: Naproxen [EC-Naprosyn] 500 mg PO BID PRN #14 tablet. PRN Reason: pain Phenazopyridine [Pyridium] 100 mg PO TID #9 tab Referrals: VIVIAN KOO MD [Staff Physician] - 2-3 Days LIZA HOLLAND MD [Staff Physician] - 3-5 Days [facility] [Provider Group] - 2-3 Days Time of Disposition: 19:59 Print Language: SINHALA
[2020-09-20 19:29] LABS: Bilirubin,Urine NEG (Negative); Blood,Urine NEG (Negative); Color,Urine Amber (Yellow); Mucus,Urine 3+ /HPF
== END 2020-09-20 20:56 | disposition home or self-care (01) ==
LOC: ED 17:30
DX: K42.9 Umbilical hernia without obstruction or gangrene (principal); F25.0 Schizoaffective disorder, bipolar type; F41.9 Anxiety disorder, unspecified; Z79.899 Other long term (current) drug therapy; Z98.51 Tubal ligation status
CPT/HCPCS: 81001; 99283

== ENCOUNTER 2020-09-22 18:57 | Emergency (ER) | payer SELFPAY ==
[2020-09-22 22:42] VITALS: BP 124/57
--- NOTE | 2020-09-23 00:41 | Emergency Department Report ---
ED General Adult HPI - General Chief complaint: Extremity Injury, Lower Stated complaint: MENTAL HEALTH/STOMACH PROBLEMS Time Seen by Provider: 09/22/20 23:43 Source: patient Mode of arrival: Ambulatory Limitations: No Limitations - Related Data Previous Rx's Medication Instructions Recorded Last Taken Type Omeprazole 40 mg PO DAILY #30 capsule. 12/10/18 Unknown Rx cephALEXin [Keflex] 500 mg PO Q8HR #30 cap 01/24/19 Unknown Rx Phenazopyridine [Pyridium] 200 mg PO Q8H #15 tab 03/15/19 Unknown Rx levoFLOXacin [Levaquin TAB] 500 mg PO QDAY #10 tablet 03/15/19 Unknown Rx Hydrocortisone 0.5% (Nf) 1 applicatio TP TID #1 tube 04/08/20 Unknown Rx [Hydrocortisone 0.5% OINT] hydrOXYzine PAMOATE [Vistaril] 25 mg PO Q6HR PRN #60 capsule 04/08/20 Unknown Rx methylPREDNISolone [Medrol 4MG 4 mg PO DAILY #21 tab.ds.pk 04/08/20 Unknown Rx DOSEPAK (21 tabs)] Naproxen [EC-Naprosyn] 500 mg PO BID PRN #14 tablet. 09/20/20 Unknown Rx Phenazopyridine [Pyridium] 100 mg PO TID #9 tab 09/20/20 Unknown Rx Allergies Allergy/AdvReac Type Severity Reaction Status Date / Time No Known Allergies Allergy Verified 09/19/20 20:00 ED Review of Systems ROS: Stated complaint: MENTAL HEALTH/STOMACH PROBLEMS Other details as noted in HPI Constitutional: denies: chills, fever, malaise ENT: denies: throat pain Respiratory: denies: cough, shortness of breath Cardiovascular: denies: chest pain Endocrine: denies: excessive sweating Gastrointestinal: denies: abdominal pain, nausea, vomiting Genitourinary: denies: urgency, dysuria, frequency, hematuria Musculoskeletal: denies: back pain Skin: denies: change in color Neurological: denies: headache ED Past Medical Hx - Past Medical History Previous Medical History?: Yes Hx Psychiatric Treatment: Yes (Bipolar; schizophrenia; anxiety) - Surgical History Past Surgical History?: Yes Additional Surgical History: TUBAL LIG - Social History Smoking Status: Never Smoker Substance Use Type: None - Medications Home Medications: Home Medications Medication Instructions Recorded Confirmed Last Taken Type Omeprazole 40 mg PO DAILY #30 capsule. 12/10/18 Unknown Rx cephALEXin [Keflex] 500 mg PO Q8HR #30 cap 01/24/19 Unknown Rx Phenazopyridine [Pyridium] 200 mg PO Q8H #15 tab 03/15/19 Unknown Rx levoFLOXacin [Levaquin TAB] 500 mg PO QDAY #10 tablet 03/15/19 Unknown Rx Hydrocortisone 0.5% (Nf) 1 applicatio TP TID #1 tube 04/08/20 Unknown Rx [Hydrocortisone 0.5% OINT] hydrOXYzine PAMOATE [Vistaril] 25 mg PO Q6HR PRN #60 capsule 04/08/20 Unknown Rx methylPREDNISolone [Medrol 4MG 4 mg PO DAILY #21 tab.ds.pk 04/08/20 Unknown Rx DOSEPAK (21 tabs)] Naproxen [EC-Naprosyn] 500 mg PO BID PRN #14 tablet. 09/20/20 Unknown Rx Phenazopyridine [Pyridium] 100 mg PO TID #9 tab 09/20/20 Unknown Rx ED Physical Exam - General Limitations: No Limitations General appearance: alert, in no apparent distress - Head Head exam: Present: atraumatic, normocephalic - Eye Eye exam: Present: normal appearance - ENT ENT exam: Present: mucous membranes moist - Neck Neck exam: Present: normal inspection - Respiratory Respiratory exam: Present: normal lung sounds bilaterally. Absent: respiratory distress - Cardiovascular Cardiovascular Exam: Present: regular rate, normal rhythm. Absent: systolic murmur, diastolic murmur, rubs, gallop - GI/Abdominal GI/Abdominal exam: Present: soft, normal bowel sounds. Absent: distended, guarding, rebound, rigid - Extremities Exam Extremities exam: Present: full ROM - Back Exam Back exam: Present: normal inspection. Absent: CVA tenderness (R), CVA tenderness (L) - Neurological Exam Neurological exam: Present: alert, oriented X3, normal gait - Psychiatric Psychiatric exam: Present: normal affect, normal mood - Skin Skin exam: Present: warm, dry, intact, normal color. Absent: rash ED Course Vital Signs 09/22/20 22:37 Temperature 98.6 F Pulse Rate 77 Respiratory 18 Rate Blood Pressure 124/57 O2 Sat by Pulse 99 Oximetry ED Medical Decision Making - Lab Data Result diagrams: 09/23/20 00:30 09/23/20 00:30 Critical care attestation.: If time is entered above; I have spent that time in minutes in the direct care of this critically ill patient, excluding procedure time. ED Disposition Clinical Impression: Right foot pain, Chronic abdominal pain Disposition: DC- TO HOME OR SELFCARE Is pt being admited?: No Condition: Stable Instructions: Abdominal Pain, Adult, Foot Pain Referrals: [facility] [Provider Group] - 3-5 Days [facility] [Provider Group] - 3-5 Days
[2020-09-23 00:49] LABS: Eosinophils # (Auto) 0.1 K/mm3 (0.0-0.4); Eosinophils % (Auto) 3.4 % (0.0-4.3); Hematocrit 39.3 % (30.3-42.9); Hemoglobin 13.3 gm/dl (10.1-14.3); Lymphocytes # (Auto) 1.7 K/mm3 (1.2-5.4); Lymphocytes % (Auto) 45.7 % (13.4-35.0); Mean Corpuscular HGB Conc 34 % (30-34); Mean Corpuscular Volume 87 fl (79-97); Monocytes # (Auto) 0.4 K/mm3 (0.0-0.8); Monocytes % (Auto) 12.1 % (0.0-7.3); Platelet Count 226 K/mm3 (140-440); Red Blood Count 4.55 M/mm3 (3.65-5.03); Red Cell Distribution Width 12.9 % (13.2-15.2)
[2020-09-23 01:06] LABS: Alanine Aminotransferase 28 units/L (7-56); Albumin 4.1 g/dL (3.9-5); Blood Urea Nitrogen 18 mg/dL (7-17); Hemolysis Index 4
--- NOTE | 2020-09-23 01:07 | XRay Report ---
RIGHT FOOT 3 VIEW(S) INDICATION / CLINICAL INFORMATION: forefoot pain COMPARISON: None available. FINDINGS: BONES / JOINT(S): No acute fracture or subluxation. Lisfranc interval is maintained. No significant a rthritis. SOFT TISSUES: No significant abnormality. ADDITIONAL FINDINGS: None. IMPRESSION: No acute osseous findings of the right foot. Signer Name: Carlos Chand MD Signed: 09/23/2020 1:02 AM Workstation Name: [id number]
[2020-09-23 01:17] LABS: BUN/Creatinine Ratio 26
[2020-09-23] MEDS ORDERED: IBUPROFEN 600 MG TAB PO ONE ×2 (01:22→04:08)
== END 2020-09-23 01:40 | disposition home or self-care (01) ==
LOC: ED 18:57
DX: M79.671 Pain in right foot (principal); R10.9 Unspecified abdominal pain; F25.0 Schizoaffective disorder, bipolar type; F41.9 Anxiety disorder, unspecified; Z98.51 Tubal ligation status; Z79.899 Other long term (current) drug therapy
CPT/HCPCS: 36415; 80053; 83690; 85025; 99283

== ENCOUNTER 2020-09-25 18:51 | Emergency (ER) | payer SELFPAY ==
[2020-09-25 20:59] VITALS: BP 121/85
--- NOTE | 2020-09-25 21:09 | Emergency Department Report ---
Chief Complaint: Extremity Problem,Nontraumatic Stated Complaint: MIL GROVER Time Seen by Provider: 09/25/20 21:07 - HPI History of Present Illness: Patient is a 55-year-old female presents emergency room stating that she lost her [employer]ha breeze card and has no way to get to a [place]. She states that she is homeless and needs a [place] to stay in. She denies any SI or HI. She denies any physical complaints tonight. She states that she just needs help getting to a [place] facility. No past medical history. No allergies medications. vitals are normal On exam: Non toxic appearing, no acute distress atraumatic, normocephalic normal appearance of the eyes,EOMI, no periorbital edema or ecchymosis moist mucus membranes No respiratory distress, no accessory muscle use A&O x4, no focal neuro deficit skin is warm, dry Patient presents due to being homeless and needing a radha card to get to a [place] She has no physical complaints at this time She denies any SI or HI She is alert and oriented x3 and appropriately answers questions She has no signs of acute psychosis, she does not meet inpatient psych criteria at this time Daria charge nurse was able to provide a Radha card for patient Patient was given a list of shelters Discussed strict return precautions with patient Patient given the appropriate resources Medical screening examination performed and there is no threat to life or limb at this time - Exam Vital Signs: Vital Signs 09/25/20 20:54 Temperature 98.4 F Pulse Rate 84 Respiratory 18 Rate Blood Pressure 121/85 [Left] O2 Sat by Pulse 99 Oximetry MSE screening note: Focused history and physical exam performed. ED Disposition for MSE Clinical Impression: Encounter for medical screening examination Disposition: MED SCREENING EXAM-LEFT Is pt being admited?: No Does the pt Need Aspirin: No Condition: Stable Referrals: PRIMARY CARE, [Primary Care Provider] - 2-3 Days Time of Disposition: 21:21 Print Language: CROATIAN
== END 2020-09-25 21:29 | disposition left against medical advice (07) ==
LOC: ED 18:51
DX: Z13.9 Encounter for screening, unspecified (principal); Z53.21 Procedure and treatment not carried out due to patient leaving prior to being seen by health care provider

== ENCOUNTER 2020-10-04 20:39 | Emergency (ER) | payer SELFPAY ==
[2020-10-04 22:25] VITALS: BP 148/80
--- NOTE | 2020-10-04 22:29 | Emergency Department Report ---
Chief Complaint: Extremity Injury, Upper Stated Complaint: HAND SWELLING/URINARY ISSUES Time Seen by Provider: 10/04/20 22:25 - HPI History of Present Illness: pt is a 55 yo female who presents to the ED with c/o bilateral hand and bilateral feet pain for several months. she states that she feels like her hands swell. she is currently homeless and frequently walks around during the day. she denies any fall or injury. she denies any rashes, fever, redness, numbness, w eakness. no pmhx. no allergies to meds. vss on exam: non toxic appearing, no acute distress normocephalic, atraumatic EOMI, normal appearance of the eyes moist mucus membranes no bony ttp of the BUE/BLE, mild trace edema of the bilateral hands, no edema of the BLE, no calf ttp bilaterally, no skin changes, no rash, no erythema, no increased warmth, FROM of the BLE/BUE, no deformities, neurovascularly intact with strong distal pulses throughout Symptoms could be related to arthritis There is no signs of septic joint, gout Patient has had no trauma There are no deformities on exam Patient is neurovascularly intact She is not experiencing any constitutional symptoms Advised patient may alternate tylenol or ibuprofen as needed for discomfort. follow up with a primary care doctor. return to the emergency room for any new or worsening symptoms. - Exam Vital Signs: Vital Signs 10/04/20 22:22 Temperature 98.2 F Pulse Rate 73 Respiratory 18 Rate Blood Pressure 148/80 O2 Sat by Pulse 100 Oximetry MSE screening note: Focused history and physical exam performed. Due to findings the following was ordered: ED Disposition for MSE Clinical Impression: Bilateral foot pain, Bilateral hand pain Disposition: Z-07 MED SCREENING EXAM-LEFT Is pt being admited?: No Does the pt Need Aspirin: No Condition: Stable Instructions: Osteoarthritis Additional Instructions: may alternate tylenol or ibuprofen as needed for discomfort. follow up with a primary care doctor. return to the emergency room for any new or worsening symptoms. Referrals: LIZA HOLLAND MD [Staff Physician] - 3-5 Days [facility] [Provider Group] - 3-5 Days [facility] [Outside] - 3-5 Days [facility], [LAB/CONTRACT] - 3-5 Days Time of Disposition: 22:28 Print Language: GREENLANDIC
== END 2020-10-04 22:59 | disposition left against medical advice (07) ==
LOC: ED 20:39
DX: M79.89 Other specified soft tissue disorders (principal); Z53.21 Procedure and treatment not carried out due to patient leaving prior to being seen by health care provider

== ENCOUNTER 2020-10-06 07:08 | Emergency (ER) | payer SELFPAY ==
[2020-10-06 07:29] VITALS: BP 117/73
--- NOTE | 2020-10-06 08:49 | XRay Report ---
RIGHT FOOT 3 VIEWS INDICATION: right foot pain. COMPARISON: None. IMPRESSION: No acute osseous or soft tissue abnormality. No significant DJD. There is a 3 mm roun ded calcific density in the plantar soft tissues seen on the lateral view only. This may represent a focal calcification in the plantar fascia. I suppose a foreign body could be considered. Please corre late with the patient and the image. Signer Name: Derek Galaviz Jr, MD Signed: 10/06/2020 8:45 AM Workstation Name: [id number]
--- NOTE | 2020-10-06 09:26 | Emergency Department Report ---
ED Lower Extremity HPI - General Chief Complaint: Extremity Problem,Nontraumatic Stated Complaint: FEET PAIN Time Seen by Provider: 10/06/20 07:48 Source: patient Mode of arrival: Ambulatory Limitations: No Limitations - History of Present Illness Initial Comments: This is a 55-year-old female nontoxic, well nourished in appearance, no acute signs of distress presents to the ED with c/o of acute on chronic right foot pain 2 months. Patient denies any injuries or trauma. Patient denies any numbness, tingling, fever, chills, nausea, vomiting, chest pain, shortness of breath, headache, stiff neck. Patient denies any joint swelling or joint rednes s. Patient denies decreased range of motion or abnormal gait. Patient denies any allergies. -: month(s) Injury: Foot: Right Severity: mild Severity scale (0 -10): 3 Improves With: nothing Worsens With: palpation Associated Symptoms: ambulatory. denies: snap/pop sensation, swelling, numbness, tingling, unable to bear weight, able to partially bear weight - Related Data Previous Rx's Medication Instructions Recorded Last Taken Type Omeprazole 40 mg PO DAILY #30 capsule. 12/10/18 Unknown Rx cephALEXin [Keflex] 500 mg PO Q8HR #30 cap 01/24/19 Unknown Rx Phenazopyridine [Pyridium] 200 mg PO Q8H #15 tab 03/15/19 Unknown Rx levoFLOXacin [Levaquin TAB] 500 mg PO QDAY #10 tablet 03/15/19 Unknown Rx Hydrocortisone 0.5% (Nf) 1 applicatio TP TID #1 tube 04/08/20 Unknown Rx [Hydrocortisone 0.5% OINT] hydrOXYzine PAMOATE [Vistaril] 25 mg PO Q6HR PRN #60 capsule 04/08/20 Unknown Rx methylPREDNISolone [Medrol 4MG 4 mg PO DAILY #21 tab.ds.pk 04/08/20 Unknown Rx DOSEPAK (21 tabs)] Naproxen [EC-Naprosyn] 500 mg PO BID PRN #14 tablet. 09/20/20 Unknown Rx Phenazopyridine [Pyridium] 100 mg PO TID #9 tab 09/20/20 Unknown Rx Naproxen 500 mg PO Q12H PRN #12 tablet 10/06/20 Unknown Rx Allergies Allergy/AdvReac Type Severity Reaction Status Date / Time No Known Allergies Allergy Verified 09/19/20 20:00 ED Review of Systems ROS: Stated complaint: FEET PAIN Other details as noted in HPI Comment: All other systems reviewed and negative Constitutional: denies: chills, fever Eyes: denies: eye pain, eye discharge, vision change ENT: denies: ear pain, throat pain Respiratory: denies: cough, shortness of breath, wheezing Cardiovascular: denies: chest pain, palpitations Endocrine: no symptoms reported Gastrointestinal: denies: abdominal pain, nausea, diarrhea Genitourinary: denies: urgency, dysuria, discharge Musculoskeletal: denies: back pain, joint swelling, arthralgia Skin: denies: rash, lesions Neurological: denies: headache, weakness, paresthesias Psychiatric: denies: anxiety, depression Hematological/Lymphatic: denies: easy bleeding, easy bruising ED Past Medical Hx - Past Medical History Previous Medical History?: Yes Hx Psychiatric Treatment: Yes (Bipolar; schizophrenia; anxiety) - Surgical History Past Surgical History?: Yes Additional Surgical History: TUBAL LIG - Social History Smoking Status: Never Smoker Substance Use Type: None - Medications Home Medications: Home Medications Medication Instructions Recorded Confirmed Last Taken Type Omeprazole 40 mg PO DAILY #30 capsule. 12/10/18 Unknown Rx cephALEXin [Keflex] 500 mg PO Q8HR #30 cap 01/24/19 Unknown Rx Phenazopyridine [Pyridium] 200 mg PO Q8H #15 tab 03/15/19 Unknown Rx levoFLOXacin [Levaquin TAB] 500 mg PO QDAY #10 tablet 03/15/19 Unknown Rx Hydrocortisone 0.5% (Nf) 1 applicatio TP TID #1 tube 04/08/20 Unknown Rx [Hydrocortisone 0.5% OINT] hydrOXYzine PAMOATE [Vistaril] 25 mg PO Q6HR PRN #60 capsule 04/08/20 Unknown Rx methylPREDNISolone [Medrol 4MG 4 mg PO DAILY #21 tab.ds.pk 04/08/20 Unknown Rx DOSEPAK (21 tabs)] Naproxen [EC-Naprosyn] 500 mg PO BID PRN #14 tablet. 09/20/20 Unknown Rx Phenazopyridine [Pyridium] 100 mg PO TID #9 tab 09/20/20 Unknown Rx Naproxen 500 mg PO Q12H PRN #12 tablet 10/06/20 Unknown Rx ED Physical Exam - General Limitations: No Limitations General appearance: alert, in no apparent distress - Head Head exam: Present: atraumatic, normocephalic - Eye Eye exam: Present: normal appearance - Neck Neck exam: Present: normal inspection, full ROM - Respiratory Respiratory exam: Absent: respiratory distress - Cardiovascular Cardiovascular Exam: Present: regular rate - Extremities Exam Extremities exam: Present: normal inspection, full ROM, tenderness, normal capillary refill. Absent: pedal edema, joint swelling, calf tenderness - Expanded Lower Extremity Exam Right Hip exam: Present: normal inspection, full ROM. Absent: tenderness, swelling Upper Leg exam: Present: normal inspection, full ROM. Absent: tenderness, swelling Knee exam: Present: normal inspection, full ROM. Absent: tenderness, swelling Lower Leg exam: Present: normal inspection, full ROM. Absent: tenderness, swelling Ankle exam: Present: normal inspection, full ROM. Absent: tenderness, swelling, abrasion, laceration, ecchymosis, deformity, crepidus, dislocation, erythema, anterior draw sign Foot/Toe exam: Present: normal inspection, full ROM, tenderness. Absent: swelling, abrasion, laceration, ecchymosis, deformity, crepidus, dislocation, erythema, amputation, puncture wound, foreign body, calcaneal tenderness, tenderness at base of 5th metatarsal, nail avulsion, subungual hematoma Neuro vascular tendon exam: Present: no vascular compromise Gait: Positive: observed and normal 1 - pain here - Back Exam Back exam: Present: normal inspection, full ROM - Neurological Exam Neurological exam: Present: alert, oriented X3, normal gait - Psychiatric Psychiatric exam: Present: normal affect, normal mood - Skin Skin exam: Present: warm, dry, intact, normal color. Absent: rash ED Course Vital Signs 10/06/20 07:26 Temperature 98.0 F Pulse Rate 84 Respiratory 18 Rate Blood Pressure 117/73 O2 Sat by Pulse 100 Oximetry - Reevaluation(s) Reevaluation #1: 10/06/20 09:28 Patient is speaking in full sentences with no signs of distress noted. ED Lower Extremity MDM - Radiology Data [facility] [address] [place] [address] XRay Report Signed Patient: DU HAWKINS MR#: [id number] : 1965 Acct:[id number] Age/Sex: 55 / F ADM Date: 10/06/20 Loc: ED Attending Dr: Ordering Physician: ZEINA DUMONT NP Date of Service: 10/06/20 Procedure(s): XR foot 3+V RT Accession Number(s): [id number] cc: ZEINA DUMONT NP Fluoro Time In Minutes: RIGHT FOOT 3 VIEWS INDICATION: right foot pain. COMPARISON: None. IMPRESSION: No acute osseous or soft tissue abnormality. No significant DJD. There is a 3 mm rounded calcific density in the plantar soft tissues seen on the lateral view only. This may represent a focal calcification in the plantar fascia. I suppose a foreign body could be considered. Please correlate with the patient and the image. Signer Name: Derek Galaviz Jr, MD Signed: 10/06/2020 8:45 AM Workstation Name: [id number] Transcribed By: TTR Dictated By: DEREK GALAVIZ JR, MD Electronically Authenticated By: DEREK GALAVIZ JR, MD Signed Date/Time: 10/06/20844 DD/ 2 TD/TT: - Medical Decision Making This is a 55-year-old female that presents with right plantar fasciitis. Patient is stable and was examined by me. X-ray has been obtained and dictated by the radiologist. Patient is notified of the x-ray report with noted by the patient. Patient does have normal gait with no tenderness and no joint swelling. No ecchymosis. no joint redness or swelling. Not warm to touch. No signs of cellulites present. Patient educated on [id number] remedies for plantar fasciitis exercises. Patient was instructed to RICE therapy. Patient is discharged with Motrin. At time of discharge, the patient does not seem toxic or ill in appearance. No acute signs of distress noted. Patient agrees to discharge treatment plan of care. No further questions noted by the patient. Critical care attestation.: If time is entered above; I have spent that time in minutes in the direct care of this critically ill patient, excluding procedure time. ED Disposition Clinical Impression: Plantar fasciitis, right Disposition: DC-01 TO HOME OR SELFCARE Is pt being admited?: No Does the pt Need Aspirin: No Condition: Stable Instructions: Plantar Fasciitis Additional Instructions: Follow-up with a orthopedic doctor in 3-5 days or if symptoms worsen and continue return to emergency room as soon as possible. Prescriptions: Naproxen 500 mg PO Q12H PRN #12 tablet PRN Reason: Pain , Severe (7-10) Referrals: PRIMARY CARE, [Primary Care Provider] - 3-5 Days SHANEKA ROMERO MD [Staff Physician] - 3-5 Days Time of Disposition: 09:31
== END 2020-10-06 09:31 | disposition home or self-care (01) ==
LOC: ED 07:08
DX: M72.2 Plantar fascial fibromatosis (principal); F25.0 Schizoaffective disorder, bipolar type; F41.9 Anxiety disorder, unspecified; Z98.51 Tubal ligation status; Z79.899 Other long term (current) drug therapy
CPT/HCPCS: 99283

== ENCOUNTER 2020-10-10 23:01 | Emergency (ER) | payer SELFPAY ==
[2020-10-10 23:32] VITALS: BP 122/75
--- NOTE | 2020-10-10 23:37 | Emergency Department Report ---
Chief Complaint: Nosebleed Stated Complaint: NOSE BLEEDING Time Seen by Provider: 10/10/20 23:32 - HPI History of Present Illness: Patient is a 55-year-old female presents emergency room complaints of a nosebleed that began 30 minutes ago. Patient states that she has been wiping her nose to roughly and believes that she scratched the inside of her nose. She states that there is just a mild amount of bleeding. She denies any heavy bleeding or clots from the nose. She denies any post nasal bleeding or bleeding in the oropharynx. She denies any lightheadedness, fatigue, shortness of breath. No past medical history. No allergies to medications. Vitals are normal On exam: Non toxic appearing, no acute distress atraumatic, normocephalic normal appearance of the eyes, EOMI, no periorbital edema or ecchymosis moist mucus membranes, there is a small 0.5 cm abrasion present in the left naris, there is only a very light area of bleeding, no significantly heavy bleeding, no blood clots in the nose, no signs of any foreign body, right naris is normal No respiratory distress, no excessive muscle use A&O x4, no focal neuro deficit skin is warm, dry, intact Patient presents for nasal abrasion There is no significant epistaxis Discussed supportive care and symptomatic treatment with patient Discussed return precautions Discussed primary care follow-up Medical screen examination performed there is no threat to life or limb at this time - Exam Vital Signs: Vital Signs 10/10/20 23:29 Temperature 98.6 F Pulse Rate 67 Respiratory 18 Rate Blood Pressure 122/75 O2 Sat by Pulse 99 Oximetry MSE screening note: Focused history and physical exam performed. Due to findings the following was ordered: ED Disposition for MSE Clinical Impression: Nasal abrasion Qualifiers: Encounter type: initial encounter Qualified Code(s): S00.31XA - Abrasion of nose, initial encounter Disposition: Z-07 MED SCREENING EXAM-LEFT Is pt being admited?: No Does the pt Need Aspirin: No Condition: Stable Instructions: Abrasion, [id number] Additional Instructions: May use Vaseline. May use Flonase nasal spray. Please avoid scratching or rubbing in the region. If you need to wipe your nose please use medicated soft tissues. Follow-up with primary care doctor. Return to emergency room for any worsening symptoms. Referrals: [facility] [Provider Group] - 2-3 Days LIZA HOLLAND MD [Staff Physician] - 2-3 Days Time of Disposition: 23:36 Print Language: ZAMBIAN
== END 2020-10-11 | disposition left against medical advice (07) ==
LOC: ED 23:01
DX: S00.31XA Abrasion of nose, initial encounter (principal); Z53.21 Procedure and treatment not carried out due to patient leaving prior to being seen by health care provider; X58.XXXA Exposure to other specified factors, initial encounter; Y93.89 Activity, other specified; Y92.89 Other specified places as the place of occurrence of the external cause; Y99.8 Other external cause status

== ENCOUNTER 2020-10-22 22:20 | Emergency (ER) | payer MEDICAID ==
[2020-10-22] MEDS ORDERED: SODIUM CHLORIDE 0.9% 1000 ML 1,000 ML IV ONE (23:13)
[2020-10-23 00:09] LABS: Hematocrit 37.8 % (30.3-42.9); Hemoglobin 12.9 gm/dl (10.1-14.3); Mean Corpuscular HGB Conc 34 % (30-34); Mean Corpuscular Volume 87 fl (79-97); Platelet Count 209 K/mm3 (140-440); Red Blood Count 4.34 M/mm3 (3.65-5.03); Red Cell Distribution Width 12.7 % (13.2-15.2)
[2020-10-23 00:20] LABS: Alanine Aminotransferase 27 units/L (7-56); Albumin 3.9 g/dL (3.9-5); BUN/Creatinine Ratio 27; Blood Urea Nitrogen 24 mg/dL (7-17); Calcium 8.3 mg/dL (8.4-10.2); Hemolysis Index 5
[2020-10-23 00:23] LABS: Basophils % (Auto) 0.7 % (0.0-1.8); Eosinophils # (Auto) 0.1 K/mm3 (0.0-0.4); Eosinophils % (Auto) 1.9 % (0.0-4.3); Lymphocytes # (Auto) 1.2 K/mm3 (1.2-5.4); Lymphocytes % (Auto) 38.4 % (13.4-35.0); Monocytes # (Auto) 0.5 K/mm3 (0.0-0.8); Monocytes % (Auto) 16.7 % (0.0-7.3)
[2020-10-23 02:34] LABS: Bilirubin,Urine NEG (Negative); Blood,Urine NEG (Negative); Color,Urine Yellow (Yellow); Mucus,Urine FEW /HPF; Protein,Urine <15 mg/dL mg/dL (Negative); WBC,Urine < 1.0 /HPF (0.0-6.0)
--- NOTE | 2020-10-23 02:47 | Emergency Department Report ---
- General Chief complaint: Weakness Stated complaint: GENERAL ILLNESS Time Seen by Provider: 10/22/20 23:02 Source: patient Mode of arrival: Ambulatory Limitations: No Limitations - History of Present Illness Initial comments: This is a 55-year-old female nontoxic, well nourished in appearance, no acute signs of distress presents to the ED with c/o of generalized weakness times s everal days. Patient stated she has not eaten the past 2 days and now has some generalized weakness. Patient otherwise denies any other complaints or symptoms. Patient denies any chest pain, headache, dizziness, shortness of breath, fever, chills, nausea, vomiting, numbness or tingling. Patient denies any allergies. MD Complaint: generalized weakness -: days(s) Location: generalized Severity: mild Severity scale (0 -10): 0 Improves with: none Worsens with: none Associated Symptoms: denies other symptoms. denies: chest pain, confusion, dark stools, diaphoresis, dysuria, easy bruising, fever/chills, headaches, loss of appetite, nausea/vomiting, myalgias, rash, shortness of breath, syncope - Related Data Previous Rx's Medication Instructions Recorded Last Taken Type Omeprazole 40 mg PO DAILY #30 capsule. 12/10/18 Unknown Rx cephALEXin [Keflex] 500 mg PO Q8HR #30 cap 01/24/19 Unknown Rx Phenazopyridine [Pyridium] 200 mg PO Q8H #15 tab 03/15/19 Unknown Rx levoFLOXacin [Levaquin TAB] 500 mg PO QDAY #10 tablet 03/15/19 Unknown Rx Hydrocortisone 0.5% (Nf) 1 applicatio TP TID #1 tube 04/08/20 Unknown Rx [Hydrocortisone 0.5% OINT] hydrOXYzine PAMOATE [Vistaril] 25 mg PO Q6HR PRN #60 capsule 04/08/20 Unknown Rx methylPREDNISolone [Medrol 4MG 4 mg PO DAILY #21 tab.ds.pk 04/08/20 Unknown Rx DOSEPAK (21 tabs)] Naproxen [EC-Naprosyn] 500 mg PO BID PRN #14 tablet. 09/20/20 Unknown Rx Phenazopyridine [Pyridium] 100 mg PO TID #9 tab 09/20/20 Unknown Rx Naproxen 500 mg PO Q12H PRN #12 tablet 10/06/20 Unknown Rx Allergies Allergy/AdvReac Type Severity Reaction Status Date / Time No Known Allergies Allergy Verified 10/22/20 22:41 ED Review of Systems ROS: Stated complaint: GENERAL ILLNESS Other details as noted in HPI Comment: All other systems reviewed and negative Constitutional: denies: chills, fever Eyes: denies: eye pain, eye discharge, vision change ENT: denies: ear pain, throat pain Respiratory: denies: cough, shortness of breath, wheezing Cardiovascular: denies: chest pain, palpitations Endocrine: no symptoms reported Gastrointestinal: denies: abdominal pain, nausea, diarrhea Genitourinary: denies: urgency, dysuria, discharge Musculoskeletal: denies: back pain, joint swelling, arthralgia Skin: denies: rash, lesions Neurological: weakness. denies: headache, numbness, paresthesias, confusion, abnormal gait, vertigo Psychiatric: denies: anxiety, depression Hematological/Lymphatic: denies: easy bleeding, easy bruising ED Past Medical Hx - Past Medical History Hx Psychiatric Treatment: Yes (Bipolar; schizophrenia; anxiety) - Surgical History Additional Surgical History: TUBAL LIG - Social History Smoking Status: Never Smoker - Medications Home Medications: Home Medications Medication Instructions Recorded Confirmed Last Taken Type Omeprazole 40 mg PO DAILY #30 capsule. 12/10/18 Unknown Rx cephALEXin [Keflex] 500 mg PO Q8HR #30 cap 01/24/19 Unknown Rx Phenazopyridine [Pyridium] 200 mg PO Q8H #15 tab 03/15/19 Unknown Rx levoFLOXacin [Levaquin TAB] 500 mg PO QDAY #10 tablet 03/15/19 Unknown Rx Hydrocortisone 0.5% (Nf) 1 applicatio TP TID #1 tube 04/08/20 Unknown Rx [Hydrocortisone 0.5% OINT] hydrOXYzine PAMOATE [Vistaril] 25 mg PO Q6HR PRN #60 capsule 04/08/20 Unknown Rx methylPREDNISolone [Medrol 4MG 4 mg PO DAILY #21 tab.ds.pk 04/08/20 Unknown Rx DOSEPAK (21 tabs)] Naproxen [EC-Naprosyn] 500 mg PO BID PRN #14 tablet. 09/20/20 Unknown Rx Phenazopyridine [Pyridium] 100 mg PO TID #9 tab 09/20/20 Unknown Rx Naproxen 500 mg PO Q12H PRN #12 tablet 10/06/20 Unknown Rx ED Physical Exam - General Limitations: No Limitations General appearance: alert, in no apparent distress - Head Head exam: Present: atraumatic, normocephalic - Eye Eye exam: Present: normal appearance - Neck Neck exam: Present: normal inspection, full ROM. Absent: tenderness, meningismus, lymphadenopathy - Respiratory Respiratory exam: Present: normal lung sounds bilaterally. Absent: respiratory distress, wheezes, rales, rhonchi, stridor, chest wall tenderness, accessory muscle use, decreased breath sounds, prolonged expiratory - Cardiovascular Cardiovascular Exam: Present: regular rate, normal rhythm, normal heart sounds. Absent: bradycardia, tachycardia, irregular rhythm, systolic murmur, diastolic murmur, rubs, gallop - GI/Abdominal GI/Abdominal exam: Present: soft, normal bowel sounds. Absent: distended, tenderness, guarding, rebound, rigid, diminished bowel sounds - Extremities Exam Extremities exam: Present: normal inspection, full ROM, normal capillary refill. Absent: tenderness - Back Exam Back exam: Present: normal inspection, full ROM. Absent: tenderness, CVA tenderness (R), CVA tenderness (L), muscle spasm, paraspinal tenderness, vertebral tenderness, rash noted - Neurological Exam Neurological exam: Present: alert, oriented X3, normal gait - Psychiatric Psychiatric exam: Present: normal affect, normal mood - Skin Skin exam: Present: warm, dry, intact, normal color. Absent: rash ED Course Vital Signs 10/22/20 10/22/20 10/22/20 22:44 23:28 23:30 Temperature 98.7 F Pulse Rate 100 H 86 83 Respiratory 18 14 17 Rate Blood Pressure 106/69 Blood Pressure [Left] O2 Sat by Pulse 99 Oximetry 10/22/20 10/23/20 10/23/20 23:45 00:00 00:02 Temperature Pulse Rate 87 76 88 Respiratory 15 11 L 14 Rate Blood Pressure 106/61 106/61 Blood Pressure 106/61 [Left] O2 Sat by Pulse 100 99 100 Oximetry 10/23/20 10/23/20 10/23/20 00:03 00:16 00:30 Temperature Pulse Rate 86 77 Respiratory 14 20 18 Rate Blood Pressure 106/61 106/61 Blood Pressure [Left] O2 Sat by Pulse 100 98 98 Oximetry 10/23/20 10/23/20 00:46 01:00 Temperature Pulse Rate 75 84 Respiratory 19 19 Rate Blood Pressure 106/61 106/61 Blood Pressure [Left] O2 Sat by Pulse 97 100 Oximetry - Reevaluation(s) Reevaluation #1: 10/23/20 02:45 Patient is speaking in full sentences with no signs of distress noted. ED Medical Decision Making - Lab Data Result diagrams: 10/22/20 23:21 10/22/20 23:21 Lab Results 10/22/20 10/22/20 10/23/20 Range/Units 23:21 23:21 02:21 WBC 3.0 L (4.5-11.0) K/mm3 RBC 4.34 (3.65-5.03) M/mm3 Hgb 12.9 (10.1-14.3) gm/dl Hct 37.8 (30.3-42.9) % MCV 87 (79-97) fl MCH 30 (28-32) pg MCHC 34 (30-34) % RDW 12.7 L (13.2-15.2) % Plt Count 209 (140-440) K/mm3 Lymph % (Auto) 38.4 H (13.4-35.0) % [place] % (Auto) 16.7 H (0.0-7.3) % Eos % (Auto) 1.9 (0.0-4.3) % Baso % (Auto) 0.7 (0.0-1.8) % Lymph # (Auto) 1.2 (1.2-5.4) K/mm3 [place] # (Auto) 0.5 (0.0-0.8) K/mm3 Eos # (Auto) 0.1 (0.0-0.4) K/mm3 Baso # (Auto) 0.0 (0.0-0.1) K/mm3 Seg Neutrophils % 42.3 (40.0-70.0) % Seg Neutrophils # 1.3 L (1.8-7.7) K/mm3 Sodium 142 (137-145) mmol/L Potassium 4.5 (3.6-5.0) mmol/L Chloride 101.6 (98-107) mmol/L Carbon Dioxide 32 H (22-30) mmol/L Anion Gap 13 mmol/L BUN 24 H (7-17) mg/dL Creatinine 0.9 (0.6-1.2) mg/dL Estimated GFR > 60 ml/min BUN/Creatinine Ratio 27 % Glucose 83 (65-100) mg/dL Calcium 8.3 L (8.4-10.2) mg/dL Total Bilirubin 0.60 (0.1-1.2) mg/dL AST 37 (5-40) units/L ALT 27 (7-56) units/L Alkaline Phosphatase 113 (35-129) units/L Total Protein 6.7 (6.3-8.2) g/dL Albumin 3.9 (3.9-5) g/dL Albumin/Globulin Ratio 1.4 % Urine Color Yellow (Yellow) Urine Turbidity Clear (Clear) Urine pH 6.0 (5.0-7.0) Ur Specific [place] 1.029 (1.003-1.030) Urine Protein <15 mg/dl (Negative) mg/dL Urine Glucose (UA) Neg (Negative) mg/dL Urine Ketones Neg (Negative) mg/dL Urine Blood Neg (Negative) Urine Nitrite Neg (Negative) Urine Bilirubin Neg (Negative) Urine Urobilinogen 2.0 (<2.0) mg/dL Ur Leukocyte Esterase Neg (Negative) Urine WBC (Auto) < 1.0 (0.0-6.0) /HPF Urine RBC (Auto) 1.0 (0.0-6.0) /HPF U Epithel Cells (Auto) < 1.0 (0-13.0) /HPF Urine Mucus Few /HPF - EKG Data 10/23/20 02:46 Normal sinus rhythm at [address] or T wave abnormalities. Reviewed and signed by MD. - Medical Decision Making This is a 55-year-old female that presents with generalized weakness. Patient is stable and was examined by me. EKG is normal sinus rhythm with no ST abnormalities. Labs are unremarkable. Urine obtained. Patient received 1 L of normal saline which she stated his symptoms of dizziness has subsided and resolved. Patient is neurologically stable. Patient was instructed to Follow- up with a primary care doctor in 3-5 days or if symptoms worsen and continue return to emergency room as soon as possible. At time of discharge, the patient does not seem toxic or ill in appearance. No acute signs of distress noted. Patient agrees to discharge treatment plan of care. No further questions noted by the patient. Critical care attestation.: If time is entered above; I have spent that time in minutes in the direct care of this critically ill patient, excluding procedure time. ED Disposition Clinical Impression: Generalized weakness Disposition: DC-01 TO HOME OR SELFCARE Is pt being admited?: No Does the pt Need Aspirin: No Condition: Stable Additional Instructions: Follow-up with a primary care doctor in 3-5 days or if symptoms worsen and continue return to emergency room as soon as possible. Referrals: PRIMARY MD MINERVA [Primary Care Provider] - 3-5 Days LIZA HOLLAND MD [Staff Physician] - 3-5 Days Time of Disposition: 02:46
[2020-10-23 04:49] VITALS: BP 106/62
--- NOTE | 2020-10-23 09:29 | Electrocardiograph Report ---
[facility] Test Date: 2020-10-22 Test Time: 23:34:34 Pat Name: DU HAWKINS Department: Room: Gender: F [employer] Worker: LUIS MIGUEL : 1965 Requested By: ZEINA DUMONT Order Number: [id number] Reading MD: Nic Bowles Measurements Intervals [place] Rate: 76 P: 68 WY: 137 QRS: 73 QRSD: 94 T: 57 QT: 373 QTc: 421 Interpretive Statements Sinus rhythm No previous ECG available for comparison Electronically Signed On 10-23-2020 6:29:33 PDT by Nic Bowles
== END 2020-10-23 04:46 | disposition home or self-care (01) ==
LOC: ED 22:20
DX: R53.1 Weakness (principal); F31.9 Bipolar disorder, unspecified; Z98.51 Tubal ligation status; Z79.899 Other long term (current) drug therapy
CPT/HCPCS: 36415; 80053; 81001; 85025; 93005; 96360; 99283; J7030

== ENCOUNTER 2020-10-28 08:22 | Emergency (ER) | payer SELFPAY ==
[2020-10-28 08:34] VITALS: BP 123/75
== END 2020-10-28 08:56 | disposition left against medical advice (07) ==
LOC: ED 08:22
DX: R10.9 Unspecified abdominal pain (principal); Z53.21 Procedure and treatment not carried out due to patient leaving prior to being seen by health care provider

== ENCOUNTER 2020-11-02 22:21 | Emergency (ER) | payer MEDICAID ==
[2020-11-02 23:19] VITALS: BP 124/78
--- NOTE | 2020-11-03 00:10 | Emergency Department Report ---
- General Chief complaint: Abdominal Pain Stated complaint: HAND IRRATION,ABD PAIN Time Seen by Provider: 11/03/20 00:02 Source: patient Mode of arrival: Ambulatory Limitations: No Limitations - History of Present Illness Initial comments: 55-year-old -M[place] female presents to the emergency room reporting bilateral hand irritation and rash in her navel area for few days. Patient states that she believes her hand irritation is from the cold weather. Patient denies any nausea vomiting diarrhea dysuria or vaginal discharge. Patient shows me a ring around her navel. Patient does have a past medical history of bipolar schizophrenia and anxiety. Patient has a surgical history of tubal ligation. Patient reports that she is from [place]. complaint: rash Onset/Timin -: week(s) Location: L hand, R hand Severity scale (0 -10): 1 Quality: other (Irritated) Consistency: intermittent Improves with: none Worsens with: other (Cold weather) Context: none Treatments Prior to Arrival: none - Related Data Previous Rx's Medication Instructions Recorded Last Taken Type Omeprazole 40 mg PO DAILY #30 capsule. 12/10/18 Unknown Rx cephALEXin [Keflex] 500 mg PO Q8HR #30 cap 01/24/19 Unknown Rx Phenazopyridine [Pyridium] 200 mg PO Q8H #15 tab 03/15/19 Unknown Rx levoFLOXacin [Levaquin TAB] 500 mg PO QDAY #10 tablet 03/15/19 Unknown Rx Hydrocortisone 0.5% (Nf) 1 applicatio TP TID #1 tube 04/08/20 Unknown Rx [Hydrocortisone 0.5% OINT] hydrOXYzine PAMOATE [Vistaril] 25 mg PO Q6HR PRN #60 capsule 04/08/20 Unknown Rx methylPREDNISolone [Medrol 4MG 4 mg PO DAILY #21 tab.ds.pk 04/08/20 Unknown Rx DOSEPAK (21 tabs)] Naproxen [EC-Naprosyn] 500 mg PO BID PRN #14 tablet. 09/20/20 Unknown Rx Phenazopyridine [Pyridium] 100 mg PO TID #9 tab 09/20/20 Unknown Rx Naproxen 500 mg PO Q12H PRN #12 tablet 10/06/20 Unknown Rx Triamcinolone Acetonide 15 gm TP BID PRN #15 oint...g. 11/03/20 Unknown Rx [Triamcinolone Acetonide Oint 0.5%] Allergies Allergy/AdvReac Type Severity Reaction Status Date / Time No Known Allergies Allergy Verified 10/22/20 22:41 Abscess Boil [facility] Chief Complaint: Abdominal Pain Stated Complaint: HAND IRRATION,ABD PAIN Time Seen by Provider: 11/03/20 00:02 Home Medications: Previous Rx's Medication Instructions Recorded Last Taken Type Omeprazole 40 mg PO DAILY #30 capsule. 12/10/18 Unknown Rx cephALEXin [Keflex] 500 mg PO Q8HR #30 cap 01/24/19 Unknown Rx Phenazopyridine [Pyridium] 200 mg PO Q8H #15 tab 03/15/19 Unknown Rx levoFLOXacin [Levaquin TAB] 500 mg PO QDAY #10 tablet 03/15/19 Unknown Rx Hydrocortisone 0.5% (Nf) 1 applicatio TP TID #1 tube 04/08/20 Unknown Rx [Hydrocortisone 0.5% OINT] hydrOXYzine PAMOATE [Vistaril] 25 mg PO Q6HR PRN #60 capsule 04/08/20 Unknown Rx methylPREDNISolone [Medrol 4MG 4 mg PO DAILY #21 tab.ds.pk 04/08/20 Unknown Rx DOSEPAK (21 tabs)] Naproxen [EC-Naprosyn] 500 mg PO BID PRN #14 tablet. 09/20/20 Unknown Rx Phenazopyridine [Pyridium] 100 mg PO TID #9 tab 09/20/20 Unknown Rx Naproxen 500 mg PO Q12H PRN #12 tablet 10/06/20 Unknown Rx Triamcinolone Acetonide 15 gm TP BID PRN #15 oint...g. 11/03/20 Unknown Rx [Triamcinolone Acetonide Oint 0.5%] Allergies/Adverse Reactions: Allergies Allergy/AdvReac Type Severity Reaction Status Date / Time No Known Allergies Allergy Verified 10/22/20 22:41 ED Review of Systems ROS: Stated complaint: HAND IRRATION,ABD PAIN Other details as noted in HPI ED Past Medical Hx - Past Medical History Previous Medical History?: Yes Hx Psychiatric Treatment: Yes (Bipolar; schizophrenia; anxiety) - Surgical History Past Surgical History?: Yes Additional Surgical History: TUBAL LIG - Social History Smoking Status: Never Smoker Substance Use Type: Alcohol - Medications Home Medications: Home Medications Medication Instructions Recorded Confirmed Last Taken Type Omeprazole 40 mg PO DAILY #30 capsule. 12/10/18 Unknown Rx cephALEXin [Keflex] 500 mg PO Q8HR #30 cap 01/24/19 Unknown Rx Phenazopyridine [Pyridium] 200 mg PO Q8H #15 tab 03/15/19 Unknown Rx levoFLOXacin [Levaquin TAB] 500 mg PO QDAY #10 tablet 03/15/19 Unknown Rx Hydrocortisone 0.5% (Nf) 1 applicatio TP TID #1 tube 04/08/20 Unknown Rx [Hydrocortisone 0.5% OINT] hydrOXYzine PAMOATE [Vistaril] 25 mg PO Q6HR PRN #60 capsule 04/08/20 Unknown Rx methylPREDNISolone [Medrol 4MG 4 mg PO DAILY #21 tab.ds.pk 04/08/20 Unknown Rx DOSEPAK (21 tabs)] Naproxen [EC-Naprosyn] 500 mg PO BID PRN #14 tablet. 09/20/20 Unknown Rx Phenazopyridine [Pyridium] 100 mg PO TID #9 tab 09/20/20 Unknown Rx Naproxen 500 mg PO Q12H PRN #12 tablet 10/06/20 Unknown Rx Triamcinolone Acetonide 15 gm TP BID PRN #15 oint...g. 11/03/20 Unknown Rx [Triamcinolone Acetonide Oint 0.5%] ED Physical Exam - General Limitations: No Limitations General appearance: alert, in no apparent distress - Head Head exam: Present: atraumatic, normocephalic - Eye Eye exam: Present: normal appearance - ENT ENT exam: Present: normal exam, mucous membranes moist - Neck Neck exam: Present: tenderness, full ROM - Respiratory Respiratory exam: Present: normal lung sounds bilaterally. Absent: respiratory distress - Cardiovascular Cardiovascular Exam: Present: regular rate - GI/Abdominal GI/Abdominal exam: Present: soft, normal bowel sounds. Absent: distended, tenderness, guarding - Neurological Exam Neurological exam: Present: alert, oriented X3, normal gait - Psychiatric Psychiatric exam: Present: normal mood. Absent: normal affect - Skin Skin exam: Present: dry (Both hands appear to be dry skin. No open wounds no lesions appreciated. Nonerythematous). Absent: erythema ED Course Vital Signs 11/02/20 23:18 Temperature 97.7 F Pulse Rate 95 H Respiratory 18 Rate Blood Pressure 124/78 O2 Sat by Pulse 100 Oximetry ED Medical Decision Making - Medical Decision Making 55-year-old -[place] female presents to the emergency room reporting bilateral hand irritation and rash in her navel area for few days. Patient states that she believes her hand irritation is from the cold weather. Patient denies any nausea vomiting diarrhea dysuria or vaginal discharge. Patient shows me a ring around her navel. Patient does have a past medical history of bipolar schizophrenia and anxiety. Patient has a surgical history of tubal ligation. Patient reports that she is from [place]. Recommend triamcinolone cream. Can be placed on hands and skin around the navel. Critical care attestation.: If time is entered above; I have spent that time in minutes in the direct care of this critically ill patient, excluding procedure time. ED Disposition Clinical Impression: Contact dermatitis Disposition: DC-01 TO HOME OR SELFCARE Is pt being admited?: No Does the pt Need Aspirin: No Condition: Stable Instructions: Abdominal Pain (ED), Contact Dermatitis, [id number] Additional Instructions: Use medication on both hands and around your navel. Follow-up with your primary care provider. Prescriptions: Triamcinolone Acetonide [Triamcinolone Acetonide Oint 0.5%] 15 gm TP BID PRN #15 oint...g. PRN Reason: Rash Referrals: GHAZALA MONTES MD [Primary Care Provider] - 3-5 Days
== END 2020-11-03 00:25 | disposition home or self-care (01) ==
LOC: ED 22:21
DX: L25.9 Unspecified contact dermatitis, unspecified cause (principal); F31.9 Bipolar disorder, unspecified; F20.9 Schizophrenia, unspecified; Z98.51 Tubal ligation status; Z79.899 Other long term (current) drug therapy
CPT/HCPCS: 99282

== ENCOUNTER 2020-11-09 23:34 | Emergency (ER) | payer MEDICAID ==
[2020-11-09 23:45] VITALS: BP 121/86
--- NOTE | 2020-11-10 00:56 | Emergency Department Report ---
- General Chief complaint: Animal Bite Stated complaint: INSECT BITE Time Seen by Provider: 11/09/20 23:57 Source: patient Mode of arrival: Ambulatory Limitations: No Limitations - History of Present Illness Initial comments: This is a 55-year-old female nontoxic, well nourished in appearance, no acute signs of distress presents to the ED with c/o of redness and pain to left prox imal medial thigh x1 day. Patient denies any pus or drainage. Patient denies any fever, chills, nausea, vomiting, chest pain, shortness of breath, headache or stiff neck. Patient denies any allergies. MD complaint: insect bite/sting -: days(s) Location: LLE Severity: mild Severity scale (0 -10): 8 Quality: aching Consistency: intermittent Improves with: rest Worsens with: palpation Associated symptoms: denies other symptoms - Related Data Previous Rx's Medication Instructions Recorded Last Taken Type Omeprazole 40 mg PO DAILY #30 capsule. 12/10/18 Unknown Rx cephALEXin [Keflex] 500 mg PO Q8HR #30 cap 01/24/19 Unknown Rx Phenazopyridine [Pyridium] 200 mg PO Q8H #15 tab 03/15/19 Unknown Rx levoFLOXacin [Levaquin TAB] 500 mg PO QDAY #10 tablet 03/15/19 Unknown Rx Hydrocortisone 0.5% (Nf) 1 applicatio TP TID #1 tube 04/08/20 Unknown Rx [Hydrocortisone 0.5% OINT] hydrOXYzine PAMOATE [Vistaril] 25 mg PO Q6HR PRN #60 capsule 04/08/20 Unknown Rx methylPREDNISolone [Medrol 4MG 4 mg PO DAILY #21 tab.ds.pk 04/08/20 Unknown Rx DOSEPAK (21 tabs)] Naproxen [EC-Naprosyn] 500 mg PO BID PRN #14 tablet. 09/20/20 Unknown Rx Phenazopyridine [Pyridium] 100 mg PO TID #9 tab 09/20/20 Unknown Rx Naproxen 500 mg PO Q12H PRN #12 tablet 10/06/20 Unknown Rx Triamcinolone Acetonide 15 gm TP BID PRN #15 oint...g. 11/03/20 Unknown Rx [Triamcinolone Acetonide Oint 0.5%] Sulfamethoxazole/Trimethoprim 1 each PO BID #14 tablet 11/10/20 Unknown Rx [Bactrim DS TAB] Allergies Allergy/AdvReac Type Severity Reaction Status Date / Time No Known Allergies Allergy Verified 10/22/20 22:41 Abscess Boil [facility] Chief Complaint: Animal Bite Stated Complaint: INSECT BITE Time Seen by Provider: 11/09/20 23:57 Home Medications: Previous Rx's Medication Instructions Recorded Last Taken Type Omeprazole 40 mg PO DAILY #30 capsule. 12/10/18 Unknown Rx cephALEXin [Keflex] 500 mg PO Q8HR #30 cap 01/24/19 Unknown Rx Phenazopyridine [Pyridium] 200 mg PO Q8H #15 tab 03/15/19 Unknown Rx levoFLOXacin [Levaquin TAB] 500 mg PO QDAY #10 tablet 03/15/19 Unknown Rx Hydrocortisone 0.5% (Nf) 1 applicatio TP TID #1 tube 04/08/20 Unknown Rx [Hydrocortisone 0.5% OINT] hydrOXYzine PAMOATE [Vistaril] 25 mg PO Q6HR PRN #60 capsule 04/08/20 Unknown Rx methylPREDNISolone [Medrol 4MG 4 mg PO DAILY #21 tab.ds.pk 04/08/20 Unknown Rx DOSEPAK (21 tabs)] Naproxen [EC-Naprosyn] 500 mg PO BID PRN #14 tablet. 09/20/20 Unknown Rx Phenazopyridine [Pyridium] 100 mg PO TID #9 tab 09/20/20 Unknown Rx Naproxen 500 mg PO Q12H PRN #12 tablet 10/06/20 Unknown Rx Triamcinolone Acetonide 15 gm TP BID PRN #15 oint...g. 11/03/20 Unknown Rx [Triamcinolone Acetonide Oint 0.5%] Sulfamethoxazole/Trimethoprim 1 each PO BID #14 tablet 11/10/20 Unknown Rx [Bactrim DS TAB] Allergies/Adverse Reactions: Allergies Allergy/AdvReac Type Severity Reaction Status Date / Time No Known Allergies Allergy Verified 10/22/20 22:41 ED Review of Systems ROS: Stated complaint: INSECT BITE Other details as noted in HPI Constitutional: denies: chills, fever Eyes: denies: eye pain, eye discharge, vision change ENT: denies: ear pain, throat pain Respiratory: denies: cough, shortness of breath, wheezing Cardiovascular: denies: chest pain, palpitations Endocrine: no symptoms reported Gastrointestinal: denies: abdominal pain, nausea, diarrhea Genitourinary: denies: urgency, dysuria, discharge Musculoskeletal: denies: back pain, joint swelling, arthralgia Skin: denies: rash, lesions Neurological: denies: headache, weakness, paresthesias Psychiatric: denies: anxiety, depression Hematological/Lymphatic: denies: easy bleeding, easy bruising ED Past Medical Hx - Past Medical History Previous Medical History?: Yes Hx Psychiatric Treatment: Yes (Bipolar; schizophrenia; anxiety) - Surgical History Past Surgical History?: Yes Additional Surgical History: TUBAL LIG - Social History Smoking Status: Never Smoker Substance Use Type: Alcohol - Medications Home Medications: Home Medications Medication Instructions Recorded Confirmed Last Taken Type Omeprazole 40 mg PO DAILY #30 capsule. 12/10/18 Unknown Rx cephALEXin [Keflex] 500 mg PO Q8HR #30 cap 01/24/19 Unknown Rx Phenazopyridine [Pyridium] 200 mg PO Q8H #15 tab 03/15/19 Unknown Rx levoFLOXacin [Levaquin TAB] 500 mg PO QDAY #10 tablet 03/15/19 Unknown Rx Hydrocortisone 0.5% (Nf) 1 applicatio TP TID #1 tube 04/08/20 Unknown Rx [Hydrocortisone 0.5% OINT] hydrOXYzine PAMOATE [Vistaril] 25 mg PO Q6HR PRN #60 capsule 04/08/20 Unknown Rx methylPREDNISolone [Medrol 4MG 4 mg PO DAILY #21 tab.ds.pk 04/08/20 Unknown Rx DOSEPAK (21 tabs)] Naproxen [EC-Naprosyn] 500 mg PO BID PRN #14 tablet. 09/20/20 Unknown Rx Phenazopyridine [Pyridium] 100 mg PO TID #9 tab 09/20/20 Unknown Rx Naproxen 500 mg PO Q12H PRN #12 tablet 10/06/20 Unknown Rx Triamcinolone Acetonide 15 gm TP BID PRN #15 oint...g. 11/03/20 Unknown Rx [Triamcinolone Acetonide Oint 0.5%] Sulfamethoxazole/Trimethoprim 1 each PO BID #14 tablet 11/10/20 Unknown Rx [Bactrim DS TAB] ED Physical Exam - General Limitations: No Limitations General appearance: alert, in no apparent distress - Head Head exam: Present: atraumatic, normocephalic - Eye Eye exam: Present: normal appearance - Neck Neck exam: Present: normal inspection, full ROM. Absent: lymphadenopathy - Respiratory Respiratory exam: Absent: respiratory distress - Cardiovascular Cardiovascular Exam: Present: regular rate - GI/Abdominal GI/Abdominal exam: Present: soft. Absent: distended, tenderness - Extremities Exam Extremities exam: Present: normal inspection, full ROM, tenderness, normal capillary refill. Absent: joint swelling, calf tenderness - Expanded Lower Extremity Exam Left Hip exam: Present: normal inspection, full ROM. Absent: tenderness, swelling Upper Leg exam: Present: full ROM, tenderness, erythema (2 cmx 3 cm cellulitis with no abscess or swelling noted on exam to the left medial proximal thigh. No foreign body. No open wound or abrasions noted). Absent: swelling, abrasion, laceration, ecchymosis, deformity, crepidus, dislocation Knee exam: Present: normal inspection, full ROM. Absent: tenderness, swelling Lower Leg exam: Present: normal inspection, full ROM. Absent: tenderness, swelling Ankle exam: Present: normal inspection, full ROM. Absent: tenderness, swelling Foot/Toe exam: Present: normal inspection, full ROM. Absent: tenderness, swelling Neuro vascular tendon exam: Present: no vascular compromise Gait: Positive: observed and normal - Back Exam Back exam: Present: normal inspection, full ROM - Neurological Exam Neurological exam: Present: alert, oriented X3, normal gait - Psychiatric Psychiatric exam: Present: normal affect, normal mood - Skin Skin exam: Present: warm, dry, intact, normal color. Absent: rash ED Course Vital Signs 11/09/20 23:44 Temperature 98.5 F Pulse Rate 95 H Respiratory 16 Rate Blood Pressure 121/86 O2 Sat by Pulse 97 Oximetry - Reevaluation(s) Reevaluation #1: 11/10/20 01:00 Patient is speaking in full sentences with no signs of distress noted. ED Medical Decision Making - Medical Decision Making This is a 55-year-old female that presents with cellulitis. Patient is stable and was examined by me. There is no induration, fluctuance. No signs of abscess formation. The area has been outlined with a permanent marker and patient was instructed to observe symptoms of increased redness or swelling and to return to the ER if this does occur. I will discharge patient with Bactrim. Patient did receive a tetanus booster in the ER. Patient was referred to Follow-up with a primary care doctor in 3-5 days or if symptoms worsen and continue return to emergency room as soon as possible. At time of discharge, the patient does not seem toxic or ill in appearance. No acute signs of distress noted. Patient agrees to discharge treatment plan of care. No further questions noted by the patient. Critical care attestation.: If time is entered above; I have spent that time in minutes in the direct care of this critically ill patient, excluding procedure time. ED Disposition Clinical Impression: Cellulitis of left thigh Disposition: TO HOME OR SELFCARE Is pt being admited?: No Does the pt Need Aspirin: No Condition: Stable Instructions: Cellulitis, Adult, [id number] Additional Instructions: Follow-up with a primary care doctor in 3-5 days or if symptoms worsen and continue return to emergency room as soon as possible. Prescriptions: Sulfamethoxazole/Trimethoprim [Bactrim DS TAB] 1 each PO BID #14 tablet Referrals: MILLA PALMA MD [Primary Care Provider] - 3-5 Days LIZA HOLLAND MD [Staff Physician] - 3-5 Days Time of Disposition: :01
== END 2020-11-10 01:42 | disposition home or self-care (01) ==
LOC: ED 23:34
DX: L03.116 Cellulitis of left lower limb (principal); F31.9 Bipolar disorder, unspecified; F20.9 Schizophrenia, unspecified; F41.9 Anxiety disorder, unspecified; Z98.51 Tubal ligation status; Z79.899 Other long term (current) drug therapy
CPT/HCPCS: 99282

== ENCOUNTER 2021-09-15 22:57 | Emergency (ER) | payer SELFPAY ==
[2021-09-16] MEDS ORDERED: predniSONE 20 MG TAB PO ONE (00:56)
[2021-09-16 01:00] VITALS: BP 141/87
--- NOTE | 2021-09-16 01:02 | Emergency Department Report ---
- General Stated Complaint: BAD COLD Time Seen by Provider: 09/16/21 00:55 - History of Present Illness Initial Comments: 56-year-old female with no past medical history presents to the emergency department with 2-day history of cough nasal congestion and sneezing. She states that she feels like she just has a bad cold. She denies shortness of breath, fever, nausea, vomiting, and dizziness. She denies any sick contacts. MD Complaint: cough, nasal congestion -: Gradual, days(s) (Two) Severity: moderate Consistency: intermittent Associated Symptoms: rhinorrhea, nasal congestion, cough. denies: fever, chills, myalgias, headache, sore throat, stiff neck, chest pain, shortness of breath, abdominal pain, nausea, vomiting, diarrhea, dysuria, rash, confusion, hoarseness, ear pain Treatments Prior to Arrival: none - Related Data Previous Rx's Medication Instructions Recorded Last Taken Type Omeprazole 40 mg PO DAILY #30 capsule. 12/10/18 Unknown Rx cephALEXin [Keflex] 500 mg PO Q8HR #30 cap 01/24/19 Unknown Rx Phenazopyridine [Pyridium] 200 mg PO Q8H #15 tab 03/15/19 Unknown Rx levoFLOXacin [Levaquin TAB] 500 mg PO QDAY #10 tablet 03/15/19 Unknown Rx Hydrocortisone 0.5% (Nf) 1 applicatio TP TID #1 tube 04/08/20 Unknown Rx [Hydrocortisone 0.5% OINT] hydrOXYzine PAMOATE [Vistaril] 25 mg PO Q6HR PRN #60 capsule 04/08/20 Unknown Rx methylPREDNISolone [Medrol 4MG 4 mg PO DAILY #21 tab.ds.pk 04/08/20 Unknown Rx DOSEPAK (21 tabs)] Naproxen [EC-Naprosyn] 500 mg PO BID PRN #14 tablet. 09/20/20 Unknown Rx Phenazopyridine [Pyridium] 100 mg PO TID #9 tab 09/20/20 Unknown Rx Naproxen 500 mg PO Q12H PRN #12 tablet 10/06/20 Unknown Rx Triamcinolone Acetonide 15 gm TP BID PRN #15 oint...g. 11/03/20 Unknown Rx [Triamcinolone Acetonide Oint 0.5%] Sulfamethoxazole/Trimethoprim 1 each PO BID #14 tablet 11/10/20 Unknown Rx [Bactrim DS TAB] Benzonatate [Tessalon Perles] 100 mg PO Q8HR #15 cap 09/16/21 Unknown Rx Allergies Allergy/AdvReac Type Severity Reaction Status Date / Time No Known Allergies Allergy Verified 10/22/20 22:41 ED Review of Systems ROS: Stated complaint: BAD COLD Other details as noted in HPI Comment: All other systems reviewed and negative Constitutional: denies: chills, fever, malaise, weakness Eyes: denies: eye pain, eye discharge ENT: congestion. denies: ear pain, throat pain, dental pain Respiratory: cough. denies: orthopnea, shortness of breath, SOB with exertion, SOB at rest, wheezing Cardiovascular: denies: chest pain, palpitations, dyspnea on exertion, syncope Endocrine: no symptoms reported Gastrointestinal: denies: abdominal pain, nausea, vomiting, diarrhea Genitourinary: denies: urgency, dysuria, frequency, discharge Musculoskeletal: denies: back pain Skin: denies: rash, lesions Neurological: denies: headache, weakness, numbness, paresthesias, confusion, abnormal gait Psychiatric: denies: anxiety ED Past Medical Hx - Past Medical History Hx Psychiatric Treatment: Yes (Bipolar; schizophrenia; anxiety) - Surgical History Additional Surgical History: TUBAL LIG - Social History Smoking Status: Never Smoker Substance Use Type: Alcohol - Medications Home Medications: Home Medications Medication Instructions Recorded Confirmed Last Taken Type Omeprazole 40 mg PO DAILY #30 capsule. 12/10/18 Unknown Rx cephALEXin [Keflex] 500 mg PO Q8HR #30 cap 01/24/19 Unknown Rx Phenazopyridine [Pyridium] 200 mg PO Q8H #15 tab 03/15/19 Unknown Rx levoFLOXacin [Levaquin TAB] 500 mg PO QDAY #10 tablet 03/15/19 Unknown Rx Hydrocortisone 0.5% (Nf) 1 applicatio TP TID #1 tube 04/08/20 Unknown Rx [Hydrocortisone 0.5% OINT] hydrOXYzine PAMOATE [Vistaril] 25 mg PO Q6HR PRN #60 capsule 04/08/20 Unknown Rx methylPREDNISolone [Medrol 4MG 4 mg PO DAILY #21 tab.ds.pk 04/08/20 Unknown Rx DOSEPAK (21 tabs)] Naproxen [EC-Naprosyn] 500 mg PO BID PRN #14 tablet.dr 09/20/20 Unknown Rx Phenazopyridine [Pyridium] 100 mg PO TID #9 tab 09/20/20 Unknown Rx Naproxen 500 mg PO Q12H PRN #12 tablet 10/06/20 Unknown Rx Triamcinolone Acetonide 15 gm TP BID PRN #15 oint...g. 11/03/20 Unknown Rx [Triamcinolone Acetonide Oint 0.5%] Sulfamethoxazole/Trimethoprim 1 each PO BID #14 tablet 11/10/20 Unknown Rx [Bactrim DS TAB] Benzonatate [Tessalon Perles] 100 mg PO Q8HR #15 cap 09/16/21 Unknown Rx ED Physical Exam - General Limitations: No Limitations General appearance: alert, in no apparent distress - Head Head exam: Present: atraumatic, normocephalic - Eye Eye exam: Present: normal appearance. Absent: conjunctival injection - Neck Neck exam: Present: normal inspection. Absent: tenderness, lymphadenopathy - Respiratory Respiratory exam: Present: normal lung sounds bilaterally. Absent: respiratory distress, wheezes, rales, rhonchi, chest wall tenderness, accessory muscle use - Cardiovascular Cardiovascular Exam: Present: regular rate, normal heart sounds - GI/Abdominal GI/Abdominal exam: Present: soft, normal bowel sounds. Absent: distended, tenderness, guarding, rebound, rigid - Extremities Exam Extremities exam: Present: normal inspection - Back Exam Back exam: Present: normal inspection, full ROM. Absent: tenderness, CVA tenderness (R), CVA tenderness (L), vertebral tenderness - Neurological Exam Neurological exam: Present: alert, oriented X3 - Psychiatric Psychiatric exam: Present: normal affect, normal mood - Skin Skin exam: Present: warm, dry, intact, normal color ED Course Vital Signs 09/16/21 00:58 Temperature 97.6 F Pulse Rate 74 Respiratory 20 Rate Blood Pressure 141/87 O2 Sat by Pulse 100 Oximetry ED Medical Decision Making - Medical Decision Making 56-year-old female with no past medical history presents to the emergency department with 2-day history of cough nasal congestion and sneezing. She states that she feels like she just has a bad cold. She denies shortness of breath, fever, nausea, vomiting, and dizziness. She denies any sick contacts. No acute distress noted. Patient continues to deny shortness of breath. Patient will be treated for upper respiratory infection with cough and congestion. She was treated in the emergency department with Tessalon Perle and prednisone 600 mg p.o. She will be discharged home with prescription for Tessalon Perles to take as needed. She was advised to follow-up with primary care provider or in the emergency department if no improvement or worsening symptoms. She verbalized understanding of and agreement with plan of care. Critical care attestation.: If time is entered above; I have spent that time in minutes in the direct care of this critically ill patient, excluding procedure time. ED Disposition Clinical Impression: URI with cough and congestion Disposition: HOME / SELF CARE / HOMELESS Is pt being admited?: No Does the pt Need Aspirin: No Condition: Stable Instructions: Upper Respiratory Infection, Adult, [id number] Additional Instructions: Take medications as prescribed follow-up with primary care provider if no improvement or worsening symptoms. Prescriptions: Benzonatate [Tessalon Perles] 100 mg PO Q8HR #15 cap Referrals: SAUL TURNER MD [Referring] - 3-5 Days Time of Disposition: 01:01
[2021-09-16] MEDS: BENZONATATE 100 MG CAP PO ONE ×2 (01:10→01:12)
== END 2021-09-16 01:36 | disposition home or self-care (01) ==
LOC: ED 22:57
DX: J06.9 Acute upper respiratory infection, unspecified (principal); F31.9 Bipolar disorder, unspecified; F20.9 Schizophrenia, unspecified; F41.9 Anxiety disorder, unspecified; Z79.899 Other long term (current) drug therapy
CPT/HCPCS: 99282

== ENCOUNTER 2021-09-21 20:04 | Emergency (ER) | payer SELFPAY | END 2021-09-21 23:20 | disposition left against medical advice (07) | LOC: ED 20:04 | DX: R51.9 Headache, unspecified (principal); Z53.21 Procedure and treatment not carried out due to patient leaving prior to being seen by health care provider ==

== ENCOUNTER 2021-09-28 19:49 | Emergency (ER) | payer SELFPAY ==
[2021-09-28 20:44] VITALS: BP 115/73
[2021-09-28] MEDS ORDERED: SULFAMETHOXAZOLE/TRIMETHOPRIM 800/160MG DS TAB PO ONE (21:56)
[2021-09-28] MEDS ORDERED: ACETAMINOPHEN 500 MG TAB PO ONE (21:56)
--- NOTE | 2021-09-28 22:04 | Emergency Department Report ---
ED Extremity Problem HPI - General Chief complaint: Extremity Injury, Lower Stated complaint: BILATERAL ANKLE SWELLING AND PAIN Source: patient Mode of arrival: Ambulatory Limitations: No Limitations - History of Present Illness Initial comments: Patient is a 56-year-old -[place] Citizen female with a history of anxiety, depression, bipolar disorder and paranoid schizophrenia who presents to the ED with complaint of acute onset persistent localized right lower leg pain with mild erythematous maculopapular rash for the last 2 days. Patient states that the rash initially started small but in the last 24 hours she noticed that the redness was spreading. Patient denies dizziness, syncope, fever, chills, nausea and vomiting, traumatic injury, fall, numbness and tingling or weakness of lower extremities bilaterally, cough, headache, chest pain or shortness of breath. MD Complaint: extremity pain (right lower leg erythematous rash) -: Sudden, days(s) (2) Location: lower extremity (right) History of Same: No -: Yes myalgia Radiation: none Severity scale (0 -10): 3 Quality: aching, sharp Consistency: constant Improves with: nothing Worsens with: nothing Associated Symptoms: denies other symptoms, rash (Mild erythematous maculopapular painful rash on anterior right lower leg). denies: chest pain, shortness of breath, fever, myalgias, arthralgias - Related Data Previous Rx's Medication Instructions Recorded Last Taken Type Omeprazole 40 mg PO DAILY #30 capsule. 12/10/18 Unknown Rx cephALEXin [Keflex] 500 mg PO Q8HR #30 cap 01/24/19 Unknown Rx Phenazopyridine [Pyridium] 200 mg PO Q8H #15 tab 03/15/19 Unknown Rx levoFLOXacin [Levaquin TAB] 500 mg PO QDAY #10 tablet 03/15/19 Unknown Rx Hydrocortisone 0.5% (Nf) 1 applicatio TP TID #1 tube 04/08/20 Unknown Rx [Hydrocortisone 0.5% OINT] hydrOXYzine PAMOATE [Vistaril] 25 mg PO Q6HR PRN #60 capsule 04/08/20 Unknown Rx methylPREDNISolone [Medrol 4MG 4 mg PO DAILY #21 tab.ds.pk 04/08/20 Unknown Rx DOSEPAK (21 tabs)] Naproxen [EC-Naprosyn] 500 mg PO BID PRN #14 tablet. 09/20/20 Unknown Rx Phenazopyridine [Pyridium] 100 mg PO TID #9 tab 09/20/20 Unknown Rx Naproxen 500 mg PO Q12H PRN #12 tablet 10/06/20 Unknown Rx Triamcinolone Acetonide 15 gm TP BID PRN #15 oint...g. 11/03/20 Unknown Rx [Triamcinolone Acetonide Oint 0.5%] Benzonatate [Tessalon Perles] 100 mg PO Q8HR #15 cap 09/16/21 Unknown Rx Ibuprofen [Motrin] 600 mg PO Q8H PRN #20 tablet 09/28/21 Unknown Rx Sulfamethoxazole/Trimethoprim 1 each PO Q12H #20 tablet 09/28/21 Unknown Rx [Bactrim DS TAB] Allergies Allergy/AdvReac Type Severity Reaction Status Date / Time No Known Allergies Allergy Verified 10/22/20 22:41 ED Review of Systems ROS: Stated complaint: BILATERAL ANKLE SWELLING AND PAIN Other details as noted in HPI Constitutional: denies: chills, fever Eyes: denies: eye pain, eye discharge, vision change ENT: denies: ear pain, throat pain Respiratory: denies: cough, shortness of breath, wheezing Cardiovascular: denies: chest pain, palpitations Endocrine: no symptoms reported Gastrointestinal: denies: abdominal pain, nausea, diarrhea Genitourinary: denies: urgency, dysuria, discharge Musculoskeletal: arthralgia (Right lower leg pain due to a mildly erythematous maculopapular rash), myalgia. denies: back pain, joint swelling Skin: rash (Mildly erythematous maculopapular painful rash on right lower leg). denies: lesions Neurological: denies: headache, weakness, paresthesias Psychiatric: denies: anxiety, depression Hematological/Lymphatic: denies: easy bleeding, easy bruising ED Past Medical Hx - Past Medical History Previous Medical History?: No Hx Psychiatric Treatment: Yes (Bipolar; schizophrenia; anxiety) - Surgical History Past Surgical History?: Yes Additional Surgical History: TUBAL LIG - Social History Smoking Status: Never Smoker Substance Use Type: Alcohol - Medications Home Medications: Home Medications Medication Instructions Recorded Confirmed Last Taken Type Omeprazole 40 mg PO DAILY #30 capsule. 12/10/18 Unknown Rx cephALEXin [Keflex] 500 mg PO Q8HR #30 cap 01/24/19 Unknown Rx Phenazopyridine [Pyridium] 200 mg PO Q8H #15 tab 03/15/19 Unknown Rx levoFLOXacin [Levaquin TAB] 500 mg PO QDAY #10 tablet 03/15/19 Unknown Rx Hydrocortisone 0.5% (Nf) 1 applicatio TP TID #1 tube 04/08/20 Unknown Rx [Hydrocortisone 0.5% OINT] hydrOXYzine PAMOATE [Vistaril] 25 mg PO Q6HR PRN #60 capsule 04/08/20 Unknown Rx methylPREDNISolone [Medrol 4MG 4 mg PO DAILY #21 tab.ds.pk 04/08/20 Unknown Rx DOSEPAK (21 tabs)] Naproxen [EC-Naprosyn] 500 mg PO BID PRN #14 tablet.dr 09/20/20 Unknown Rx Phenazopyridine [Pyridium] 100 mg PO TID #9 tab 09/20/20 Unknown Rx Naproxen 500 mg PO Q12H PRN #12 tablet 10/06/20 Unknown Rx Triamcinolone Acetonide 15 gm TP BID PRN #15 oint...g. 11/03/20 Unknown Rx [Triamcinolone Acetonide Oint 0.5%] Benzonatate [Tessalon Perles] 100 mg PO Q8HR #15 cap 09/16/21 Unknown Rx Ibuprofen [Motrin] 600 mg PO Q8H PRN #20 tablet 09/28/21 Unknown Rx Sulfamethoxazole/Trimethoprim 1 each PO Q12H #20 tablet 09/28/21 Unknown Rx [Bactrim DS TAB] ED Physical Exam - General Limitations: No Limitations General appearance: alert, in no apparent distress - Head Head exam: Present: atraumatic, normocephalic, normal inspection - Eye Eye exam: Present: normal appearance, PERRL, EOMI Pupils: Present: normal accommodation - ENT ENT exam: Present: normal exam, normal orophraynx, mucous membranes moist, TM's normal bilaterally, normal external ear exam - Neck Neck exam: Present: normal inspection, full ROM - Respiratory Respiratory exam: Present: normal lung sounds bilaterally. Absent: respiratory distress, wheezes, rales, rhonchi, stridor, chest wall tenderness, accessory muscle use, decreased breath sounds, other - Cardiovascular Cardiovascular Exam: Present: regular rate, normal rhythm, normal heart sounds. Absent: systolic murmur, diastolic murmur, rubs, gallop - GI/Abdominal GI/Abdominal exam: Present: soft, normal bowel sounds. Absent: tenderness, guarding, rebound, hyperactive bowel sounds, hypoactive bowel sounds, organomegaly - Extremities Exam Extremities exam: Present: normal inspection, full ROM, tenderness (Palpable mild localized tenderness on right lower leg due to mild erythematous maculopapular rash), normal capillary refill - Back Exam Back exam: Present: normal inspection, full ROM. Absent: tenderness, CVA tenderness (R), CVA tenderness (L), muscle spasm, paraspinal tenderness, vertebral tenderness - Neurological Exam Neurological exam: Present: alert, oriented X3, CN II-XII intact, normal gait, reflexes normal - Psychiatric Psychiatric exam: Present: normal affect, normal mood, anxious - Skin Skin exam: Present: warm, dry, intact, rash (Mild erythematous maculopapular rash with mild localized tenderness on right lower leg), erythema. Absent: normal color ED Course Vital Signs 09/28/21 20:41 Temperature 98.1 F Pulse Rate 98 H Respiratory 18 Rate Blood Pressure 115/73 [Right] O2 Sat by Pulse 100 Oximetry ED Medical Decision Making - Medical Decision Making This is a 56-year-old -[place] Citizen female with a history of anxiety, depression, bipolar disorder and paranoid schizophrenia who presents to the ED with complaint of acute onset persistent localized right lower leg pain with mild erythematous maculopapular rash for the last 2 days. Patient states that the rash initially started small but in the last 24 hours she noticed that the redness was spreading. In the ED, patient is alert and oriented x3 and is not in any distress. Patient was treated in the ED initially for pain and also given initial oral antibiotics Bactrim DS p.o. x1 for suspected mild cellulitis of right lower leg. Patient was discharged home on pain medications and antibiotics and advised to follow-up with her primary care physician in 7 to 10 days for reevaluation or return to the ED immediately if her symptoms get worse. - Differential Diagnosis Folliculitis; cellulitis; cutaneous abscess; Critical care attestation.: If time is entered above; I have spent that time in minutes in the direct care of this critically ill patient, excluding procedure time. ED Disposition Clinical Impression: Cellulitis of right lower extremity Disposition: HOME / SELF CARE / HOMELESS Is pt being admited?: No Does the pt Need Aspirin: No Condition: Stable Instructions: Cellulitis, Adult, [id number], Folliculitis Additional Instructions: Take medications with food, drink plenty of fluids and follow-up with your primary care physician in 7 to 10 days for reevaluation. Return to the ED immediately if your symptoms get worse. Prescriptions: Sulfamethoxazole/Trimethoprim [Bactrim DS TAB] 1 each PO Q12H #20 tablet Ibuprofen [Motrin] 600 mg PO Q8H PRN #20 tablet PRN Reason: Pain Referrals: [facility] [Provider Group] - 7-10 days Time of Disposition: 22:05 Print Language: BELARUSIAN
== END 2021-09-28 22:50 | disposition home or self-care (01) ==
LOC: ED 19:49
DX: L03.115 Cellulitis of right lower limb (principal); F31.9 Bipolar disorder, unspecified; F20.9 Schizophrenia, unspecified; Z98.51 Tubal ligation status
CPT/HCPCS: 99282